=== PATIENT | female | born 1955 | race Caucasian/White ===

== ENCOUNTER 2016-07-31 08:33 | Emergency (ER) | payer MEDICARE, BC ==
[~2016-07-31] VITALS: Ht 157.5 cm; Wt 80.5 kg
[~2016-07-31 08:33] MED LIST: ACET325T33 PO; ALPR0.5T PO; ASPI-727 PO; GABA300C16 PO; IBUP-1542 PO; IBUP800T25 PO; METF500T4 PO; METO25TA4 PO; OMEP20CA16 PO
[2016-07-31 08:44] VITALS: Ht 157.5 cm; Wt 80.5 kg
[2016-07-31] MEDS ORDERED: SOD CHLORIDE 0.9% 1,000 ML IV STA (09:36)
[2016-07-31] MEDS ORDERED: ONDANSETRON 4 MG INJ IV STA (09:36)
[2016-07-31] MEDS ORDERED: morphine 4 MG/ML VIAL IV STA (09:36)
[2016-07-31] MEDS ORDERED: MTF1000T PO (09:56)
[2016-07-31] MEDS ORDERED: DICLOFENAC SODIUM 37.5 MG/ML VIAL IV STA (10:03)
[2016-07-31 10:25] LABS: ADD SCAN DIFF NO
[2016-07-31 10:30] LABS: BASOPHILS % 0.4 % (0.0-2.0); EOSINOPHILS # 0.1 10^3/ul (0.0-0.5); EOSINOPHILS % 1.7 % (0.0-7.0); HEMATOCRIT 39.8 % (37.0-47.0); HEMOGLOBIN 13.2 g/dl (12.0-16.0); LYMPHOCYTES # 1.8 10^3/ul (0.8-2.9); LYMPHOCYTES % 25.9 % (15.0-51.0); MEAN CORPUSCULAR HEMOGLOBIN 29.6 pg (29.0-33.0); MEAN CORPUSCULAR HGB CONC 33.2 g/dl (32.0-37.0); MEAN CORPUSCULAR VOLUME 89.2 fl (82.0-101.0); MEAN PLATELET VOLUME 10.4 fl (7.4-10.4); MONOCYTE # 0.8 10^3/ul (0.3-0.9); MONOCYTES % 11.1 % (0.0-11.0); NEUTROPHIL # 4.2 10^3/ul (1.6-7.5); PLATELET COUNT 299 10^3/UL (140-415); RED BLOOD COUNT 4.46 10^6/ul (4.20-5.40); RED CELL DISTRIBUTION WIDTH 13.6 % (11.5-14.5)
[2016-07-31 10:43] LABS: ALBUMIN 3.9 g/dl (3.3-4.9); ALBUMIN/GLOBULIN RATIO 1.08; BILIRUBIN,INDIRECT 0.2 mg/dl (0-1.1); BILIRUBIN,TOTAL 0.2 mg/dl (0.2-1.3); CALCIUM 8.5 mg/dl (8.4-10.2); CREATININE 0.55 mg/dl (0.44-1.00); POTASSIUM 4.2 mmol/L (3.5-5.1); TOTAL PROTEIN 7.5 g/dl (6.1-8.1)
[2016-07-31] MEDS ORDERED: SOD CHLORIDE 0.9% 100 ML ONE (11:24)
[2016-07-31] MEDS ORDERED: IODIXANOL LOCM 100 ML BTL ONE (11:24)
--- NOTE | 2016-07-31 12:20 | RADRPT ---
PROCEDURE: CT Abdomen and Pelvis with intravenous contrast. CLINICAL INDICATION: Left lower quadrant pain. History of gastritis.. TECHNIQUE: CT scan of the abdomen and pelvis with intravenous contrast was performed on the multi- slice CT scanner. The patient was scanned following the uncomplicated intravenous administration of 99 cc of Visipaque 320 contrast. Coronal and sagittal reformatted images were obtained from the ax ial source images. Images were reviewed on a high-resolution PACS workstation. Total DLP = 1132 mGy-cm. CTDIvol = 20 mGy. One or more of the following dose reduction techniques were used: Automated exposure control. Adjustment of the mA and/or kV according to patient size. Use of iterative reconstruction technique. COMPARISON: None. FINDINGS: CT abdomen and pelvis: The lung bases are clear. The heart size is normal in size. The liver is normal in size and mildly fatty in density without focal mass or intrahepatic biliary dilatation. The spleen is normal in si ze and homogeneous in density. The pancreas as visualized is normal. The gallbladder shows no ev idence of stones or distension . The adrenal glands are normal. The kidneys are symmetric in size. There is a 2 mm nonobstructing stone at the lower pole of the left kidney. No ureteral stones or obstructive uropathy is seen. There are no renal masses identified.. The stomach is partially collapsed, but is grossly unremarkable. The small bowels are unremarkable. The colon and rectum are normal. The appendix is normal.. No evidence of acute appendicitis or diver ticulitis. The uterus has been removed.. The bladder is normal. There is no abdominal or pelvic john nopathy, free fluid, free air, mass or mesenteric inflammation. The aorta is normal in caliber with calcific atherosclerosis. 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 There are no osteolytic or osteoblastic lesions identified.. The soft tissues ar e within normal limits. IMPRESSION: 1. Mild hepatic steatosis. 2. Nonobstructing 2 mm left renal calculus. 3. Bilateral L5 pars defects with mild anterolisthesis. 4. Status post hysterectomy. 5. Otherwise unremarkable contrast enhanced CT abdomen and pelvis without acute pathology identifie d. RPTAT: JJ .Mika Cortes MD, MD Date Time Electronically viewed and signed by .Mika Cortes MD, on 07/31/2016 12:20 .L/
[2016-07-31 12:32] VITALS: BP 141/74; PULSE 71; RESP 18; TEMP 98
[2016-07-31] MEDS ORDERED: METR500T PO (12:49)
[2016-07-31] MEDS ORDERED: CIPR500T4 PO (12:49)
[2016-07-31] MEDS ORDERED: DIPH1TAB PO (12:49)
[2016-07-31] MEDS ORDERED: ONDA4TAB14 PO (12:49)
--- NOTE | 2016-07-31 12:54 | ERD ---
ER Documentation Chief Complaint Date/Time DATE: 07/31/16 TIME: 12:52 Chief Complaint EPIGASTRIC PAIN,VOMITING,DIARRHEA HPI This is a 61-year-old female who developed diarrhea 2 weeks ago after she returned from [facility]. She said the diarrhea started 2 days before her arrival back in [facility]. She says she has had diarrhea every day 2-3 times a day described as watery and brown with some left lower quadrant pain prior to the diarrhea no blood in her stool. She has also had nausea vomiting diarrhea onset yesterday. No fever no chest pain shortness of breath no back pain dysuria hematuria no dizziness or syncope. ROS All systems reviewed and are negative except as per history of present illness. Medications Home Meds Active Scripts Metronidazole* (Flagyl*) 500 Mg Tablet, 500 MG PO TID for 10 Days, TAB Prov:GARRISON MEI DO 07/31/16 Ciprofloxacin Hcl* (Ciprofloxacin Hcl*) 500 Mg Tablet, 500 MG PO BID for 10 Days , TAB Prov:GARRISON MEI DO 07/31/16 Diphenoxylate HCl/Atropine (Lomotil 2.5-0.025 mg Tablet) 1 Each Tablet, 1 TAB PO QID Y for DIARRHEA, #10 TAB Prov:GARRISON MEI DO 07/31/16 Ondansetron (Ondansetron Odt) 4 Mg Tab.rapdis, 4 MG PO Q6H Y for NAUSEA AND/OR VOMITING, #10 TAB Prov:GARRISON MEI DO 07/31/16 Reported Medications Metformin* (Glucophage*) 1,000 Mg Tablet, 1000 MG PO BID, #60 TAB 07/31/16 Metoprolol Tartrate* (Lopressor*) 25 Mg Tablet, 25 MG PO BID, #60 TAB 09/29/15 Omeprazole* (Omeprazole*) 20 Mg Capsule.dr, 20 MG PO BID 07/02/13 Gabapentin* (Gabapentin*) 300 Mg Capsule, 300 MG PO TID 07/02/13 Aspirin (Adult Aspirin) 81 Mg Tab.chew, 81 MG PO DAILY, 0 Refills 07/09/10 Discontinued Reported Medications Metformin* (Glucophage*) 500 Mg Tab, 500 MG PO BID, TAB 07/02/13 Discontinued Scripts Alprazolam* (Xanax*) 0.5 Mg Tab, 0.5 MG PO TID for ANXIETY, #12 TAB Prov:JOSE MOORE MD 09/29/15 Ibuprofen* (Ibuprofen*) 600 Mg Tablet, 600 MG PO TID for PAIN, #30 TAB Prov:JOSE MOORE MD 09/29/15 Acetaminophen* (Tylenol*) 325 Mg Tablet, 2 TAB PO Q6 Y for PAIN AND OR ELEVATED TEMP, #20 TAB Prov:SARA PICHARDO PA-C 05/27/15 Ibuprofen* (Motrin*) 800 Mg Tab, 800 MG PO Q6, #30 TAB Prov:SARA PICHARDO PA-C 05/27/15 Allergies Allergies: Coded Allergies: Penicillins (Verified Allergy, Mild, 07/02/13) PMhx/Soc History of Surgery: Yes (L/R TKR) Anesthesia Reaction: Yes (05/2013 right knee surgery; left knee sx 2008) Hx Neurological Disorder: No Hx Respiratory Disorders: No Hx Cardiac Disorders: Yes (htn) Hx Psychiatric Problems: No Hx Miscellaneous Medical Probl: Yes (gastritis, dm, cholesterol) Hx Alcohol Use: No Hx Substance Use: No Hx Tobacco Use: No Smoking Status: Never smoker FmHx Family History: No coronary disease Physical Exam Vitals Vital Signs Date Time Temp Pulse Resp B/P Pulse Ox O2 Delivery O2 Flow Rate FiO2 07/31/16 12:32 98.0 71 18 141/74 97 Room Air 07/31/16 10:17 98.0 68 18 135/81 98 Room Air 07/31/16 08:44 98.9 75 18 119/60 98 Physical Exam Const: Well-developed, well-nourished Head: Atraumatic, normocephalic Eyes: Normal Conjunctiva, PERRLA, EOMI, normal sclera, no nystagmus ENT: Normal External Ears, Nose and Mouth, moist mucus membranes. Neck: Full range of motion. No meningismus, no lymphadenopathy. Resp: Clear to auscultation bilaterally, no wheezing, rhonchi, rales Cardio: Regular rate and rhythm, no murmurs, S1 S2 present Abd: Soft, some mild left lower quadrant tenderness, non distended. Normal bowel sounds, no guarding or rebound, no pulsitile abdominal masses or bruits Skin: No petechiae or rashes, no ecchymosis , no maculopapular rash Back: No midline or flank tenderness Ext: No cyanosis, or edema, FROM x 4, normal inspection, neurovascularly intact x 4 Neur: Awake and alert, STR 5/5 x 4, sensation intact x 4, no focal findings, cerebellum intact Psych: Normal Mood and Affect Result Diagram: 07/31/16 0955 07/31/16 0955 Results 24 hrs Laboratory Tests Test 07/31/16 09:55 White Blood Count 7.010^3/ul Red Blood Count 4.4610^6/ul Hemoglobin 13.2g/dl Hematocrit 39.8% Mean Corpuscular Volume 89.2fl Mean Corpuscular Hemoglobin 29.6pg Mean Corpuscular Hemoglobin Concent 33.2g/dl Red Cell Distribution Width 13.6% Platelet Count 00817^3/UL Mean Platelet Volume 10.4fl Neutrophils % 60.0% Lymphocytes % 25.9% Monocytes % 11.1% Eosinophils % 1.7% Basophils % 0.4% Nucleated Red Blood Cells % 0.0/100WBC Neutrophils # 4.210^3/ul Lymphocytes # 1.810^3/ul Monocytes # 0.810^3/ul Eosinophils # 0.110^3/ul Basophils # 0.010^3/ul Nucleated Red Blood Cells # 0.010^3/ul Sodium Level 139mmol/L Potassium Level 4.2mmol/L Chloride Level 106mmol/L Carbon Dioxide Level 26mmol/L Anion Gap 11 Blood Urea Nitrogen 13mg/dl Creatinine 0.55mg/dl Glucose Level 112mg/dl Calcium Level 8.5mg/dl Total Bilirubin 0.2mg/dl Direct Bilirubin 0.00mg/dl Indirect Bilirubin 0.2mg/dl Aspartate Amino Transf (AST/SGOT) 49IU/L Alanine Aminotransferase (ALT/SGPT) 66IU/L Alkaline Phosphatase 187IU/L Total Protein 7.5g/dl Albumin 3.9g/dl Globulin 3.60g/dl Albumin/Globulin Ratio 1.08 Lipase 223U/L Current Medications Medications (Trade) Dose Ordered Sig/Ko Route PRN Reason Start Time Stop Time Status Last Admin Dose Admin Sodium Chloride (NS) 1,000 ml @ 1,000 mls/hr Q1H STAT IV 07/31/16 09:36 07/31/16 10:35 DC 07/31/16 10:14 Morphine Sulfate (morphine) 4 mg ONCE STAT IV 07/31/16 09:36 07/31/16 09:37 DC Ondansetron HCl (Zofran Inj) 4 mg ONCE STAT IV 07/31/16 09:36 07/31/16 09:37 DC 07/31/16 10:09 Diclofenac Sodium (Dyloject) 37.5 mg ONCE STAT IV 07/31/16 10:03 07/31/16 10:04 DC 07/31/16 10:14 IV Flush 10 ml 10 ml STK-MED ONCE .ROUTE 07/31/16 11:24 07/31/16 11:25 DC 07/31/16 11:24 Sodium Chloride (NS) 100 ml @ ud STK-MED ONCE .ROUTE 07/31/16 11:24 07/31/16 11:25 DC 07/31/16 11:24 Iodixanol (Visipaque Locm) 100 ml STK-MED ONCE .ROUTE 07/31/16 11:24 07/31/16 11:25 DC 07/31/16 11:24 Procedures/MDM PROCEDURE: CT Abdomen and Pelvis with intravenous contrast. CLINICAL INDICATION: Left lower quadrant pain. History of gastritis.. TECHNIQUE: CT scan of the abdomen and pelvis with intravenous contrast was performed on the multi-slice CT scanner. The patient was scanned following the uncomplicated intravenous administration of 99 cc of Visipaque 320 contrast. Coronal and sagittal reformatted images were obtained from the axial source images. Images were reviewed on a high-resolution PACS workstation. Total DLP = 1132 mGy-cm. CTDIvol = 20 mGy. One or more of the following dose reduction techniques were used: Automated exposure control. Adjustment of the mA and/or kV according to patient size. Use of iterative reconstruction technique. COMPARISON: None. FINDINGS: CT abdomen and pelvis: The lung bases are clear. The heart size is normal in size. The liver is normal in size and mildly fatty in density without focal mass or intrahepatic biliary dilatation. The spleen is normal in size and homogeneous in density. The pancreas as visualized is normal. The gallbladder shows no evidence of stones or distension . The adrenal glands are normal. The kidneys are symmetric in size. There is a 2 mm nonobstructing stone at the lower pole of the left kidney. No ureteral stones or obstructive uropathy is seen. There are no renal masses identified.. The stomach is partially collapsed, but is grossly unremarkable. The small bowels are unremarkable. The colon and rectum are normal. The appendix is normal.. No evidence of acute appendicitis or diverticulitis. The uterus has been removed.. The bladder is normal. There is no abdominal or pelvic adenopathy , free fluid, free air, mass or mesenteric inflammation. The aorta is normal in caliber with calcific atherosclerosis. 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 There are no osteolytic or osteoblastic lesions identified.. The soft tissues are within normal limits. IMPRESSION: 1. Mild hepatic steatosis. 2. Nonobstructing 2 mm left renal calculus. 3. Bilateral L5 pars defects with mild anterolisthesis. 4. Status post hysterectomy. 5. Otherwise unremarkable contrast enhanced CT abdomen and pelvis without acute pathology identified. RPTAT: JJ .Mika Cortes MD, MD Date Time Electronically viewed and signed by .Mika Cortes MD, MD on 07/31/2016 12:20 .L/ CC: GARRISON MEI DO Patient likely has picked up an infection from being in [facility]. Will treat with Cipro and Flagyl. No signs of diverticulitis or perforation. Will treat symptomatic for nausea and vomiting. And diarrhea Departure Diagnosis: Primary Impression: Vomiting and diarrhea Additional Impression: Abdominal pain Abdominal location: left lower quadrant Qualified Code: R10.32 - Left lower quadrant pain Condition: Stable Patient Instructions: Abdominal Pain, Self-Care for Vomiting and Diarrhea GARRISON MEI DO Jul 31, 2016 12:54
== END 2016-07-31 13:00 | disposition home or self-care (01) ==
LOC: E/R 08:33
DX: R11.10 Vomiting, unspecified (principal); R19.7 Diarrhea, unspecified; R10.32 Left lower quadrant pain; I10 Essential (primary) hypertension; E11.9 Type 2 diabetes mellitus without complications; Z79.82 Long term (current) use of aspirin; Z79.84 Long term (current) use of oral hypoglycemic drugs
CPT/HCPCS: 36415; 74177; 80053; 83690; 85025; 96361; 96374; 96375; 99285; J2405; J7030; Q9967; J2270

== ENCOUNTER 2016-12-28 09:54 | Emergency (ER) | payer MEDICARE, BC ==
[~2016-12-28] VITALS: Wt 78.0 kg
[~2016-12-28 09:54] MED LIST changes: -ACET325T33 PO; -ALPR0.5T PO; +CIPR500T4 PO; +DIPH1TAB PO; -IBUP-1542 PO; -IBUP800T25 PO; -METF500T4 PO; +METR500T PO; +MTF1000T PO; +ONDA4TAB14 PO
[2016-12-28] MEDS ORDERED: KETOROLAC 30 MG INJ IM STA (10:47)
[2016-12-28] MEDS ORDERED: traMADol 50 MG TAB PO ONE (11:00)
--- NOTE | 2016-12-28 11:26 | RADRPT ---
PROCEDURE: CT Brain without contrast. CLINICAL INDICATION: Headache, left ear pain. TECHNIQUE: A CT of the brain was performed on multidetector high-resolution CT scanner utilizing a xial sections from the skull base through the vertex without contrast. The scan was reviewed in sof t tissue brain and high frequency resolution bone algorithm windows. Images were reviewed on a high -resolution PACS workstation. One or more the following does reduction techniques were utilized: Aut omated exposure control, adjustment of the mA/ or kV according to patient's size, or use of iterativ e reconstruction technique. The exam CTDI = 42.93 mGy and the DLP = 630.2 mGy-cm. COMPARISON: Brain CT 09/29/2015. FINDINGS: The ventricles and sulci are minimally prominent indicative of volume loss. There is no intracrania l hemorrhage, mass effect or midline shift. No abnormal intra-axial or extra-axial fluid collection s are seen. The greene/white matter differentiation is preserved. There are minimal scattered foci of hypoattenuation in the white matter, which are nonspecific in et iology but likely reflect chronic small vessel ischemic changes. There are minimal intracranial vas cular calcifications consistent with atherosclerosis. The visualized paranasal sinuses are essential ly clear. Prior left suboccipital craniectomy/cranioplasty changes are again noted with associated subjacent h ypodensity within the lateral aspect of the left cerebellar hemisphere suggestive of encephalomalaci a. IMPRESSION: 1. No acute intracranial hemorrhage, transcortical infarction or mass effect. 2. Minimal intracranial atherosclerosis and chronic small vessel ischemic changes. 3. Minimal generalized cerebral volume loss. 4. 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 RPTAT: JJ .Shauna Aquino MD, MD Date Time Electronically viewed and signed by .Shauna Aquino MD, MD on 12/28/2016 11:26 .N/
--- NOTE | 2016-12-28 11:49 | RADRPT ---
PROCEDURE: CT scan facial bones CLINICAL INDICATION: Left sided pain. TECHNIQUE: CT scan of the face was performed on the a high-resolution multidetector CT scanner wit h multiple contiguous axial images obtained through the face. Coronal and sagittal reformatted imag es were obtained from the axial source images. One or more the following does reduction techniques w ere utilized: Automated exposure control, adjustment of the mA/ or kV according to patient's size, o r use of iterative reconstruction technique. Exam CTDI = 29.4 mGy and the DLP = 502.52 mGy-cm. COMPARISON: None available. FINDINGS: No acute fracture or dislocation is seen. No significant soft tissue swelling is noted. The orbita l globes are unremarkable. Rightward nasal septal deviation is noted. Paranasal sinuses demonstrate mild scattered mucosal thickening mainly in ethmoid air cells and maxillary sinuses. Mild right and moderate left degenerative changes of temporomandibular joints are noted. Prior left suboccipital craniectomy/cranioplasty changes are again noted with associated subjacent h ypodensity within the lateral aspect of the left cerebellar hemisphere suggestive of encephalomalaci a. IMPRESSION: 1. No acute facial fracture or dislocation. 2. Mild scattered paranasal sinus disease. 3. Mild to moderate degenerative changes of the temporal mandibular joints. 4. 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 RPTAT: JJ .Shauna Aquino MD, MD Date Time Electronically viewed and signed by .Shauna Aquino MD, MD on 12/28/2016 11:49 .N/
[2016-12-28] MEDS ORDERED: TRAM-40 PO (12:29)
--- NOTE | 2016-12-28 12:33 | ERD ---
ER Documentation Chief Complaint Date/Time DATE: 12/28/16 TIME: 12:31 Chief Complaint LEFT EAR TO JAW PAIN HPI 61-year-old female presents with pain in her left jaw. Patient has a history of unspecified chronic pain of the left jaw and had craniotomy and surgery for this pain she states. She is unable to give specific details of what type of surgery are low as the cause of the problem. She has been and worsening symptoms similar pain radiating to her left jaw for the last month. She takes NSAIDs as well as Neurontin without relief. She denies fevers, difficulty swallowing, difficulty breathing, chest pain, shortness of breath. ROS All systems reviewed and are negative except as per history of present illness. Medications Home Meds Active Scripts Tramadol Hcl* (Ultram*) 50 Mg Tablet, 50 MG PO Q6H Y for PAIN, #20 TAB Prov:PARMINDER GOODMAN MD 12/28/16 Metronidazole* (Flagyl*) 500 Mg Tablet, 500 MG PO TID for 10 Days, TAB Prov:GARRISON MEI DO 07/31/16 Ciprofloxacin Hcl* (Ciprofloxacin Hcl*) 500 Mg Tablet, 500 MG PO BID for 10 Days , TAB Prov:GARRISON MEI DO 07/31/16 Diphenoxylate HCl/Atropine (Lomotil 2.5-0.025 mg Tablet) 1 Each Tablet, 1 TAB PO QID Y for DIARRHEA, #10 TAB Prov:GARRISON MEI DO 07/31/16 Ondansetron (Ondansetron Odt) 4 Mg Tab.rapdis, 4 MG PO Q6H Y for NAUSEA AND/OR VOMITING, #10 TAB Prov:GARRISON MEI DO 07/31/16 Reported Medications Metformin* (Glucophage*) 1,000 Mg Tablet, 1000 MG PO BID, #60 TAB 07/31/16 Metoprolol Tartrate* (Lopressor*) 25 Mg Tablet, 25 MG PO BID, #60 TAB 09/29/15 Omeprazole* (Omeprazole*) 20 Mg Capsule.dr, 20 MG PO BID 07/02/13 Gabapentin* (Gabapentin*) 300 Mg Capsule, 300 MG PO TID 07/02/13 Aspirin (Adult Aspirin) 81 Mg Tab.chew, 81 MG PO DAILY, 0 Refills 07/09/10 Allergies Allergies: Coded Allergies: Penicillins (Verified Allergy, Mild, 12/28/16) PMhx/Soc History of Surgery: Yes (L/R TKR) Anesthesia Reaction: Yes (05/2013 right knee surgery; left knee sx 2008) Hx Neurological Disorder: No Hx Respiratory Disorders: No Hx Cardiac Disorders: Yes (htn) Hx Psychiatric Problems: No Hx Miscellaneous Medical Probl: Yes (gastritis, dm, cholesterol) Hx Alcohol Use: No Hx Substance Use: No Hx Tobacco Use: No Smoking Status: Never smoker Physical Exam Vitals Vital Signs Date Time Temp Pulse Resp B/P Pulse Ox O2 Delivery O2 Flow Rate FiO2 12/28/16 09:57 98.0 78 18 139/71 99 Physical Exam Const: []Alert, not appearing Head: Atraumatic Eyes: Normal Conjunctiva ENT: Normal External Ears, Nose and Mouth.Tenderness primarily along the left angle of the mandible and jaw. There is tenderness in the left TMJ preauricular area as well. There is no erythema, warmth, and airways patent and there is no deformities. Neck: Full range of motion..~ No meningismus. Resp: Clear to auscultation bilaterally Cardio: Regular rate and rhythm, no murmurs Abd: Soft, non tender, non distended. Normal bowel sounds Skin: No petechiae or rashes Back: No midline or flank tenderness Ext: No cyanosis, or edema Neur: Awake and alert Psych: Normal Mood and Affect Results 24 hrs Current Medications Medications (Trade) Dose Ordered Sig/Ko Route PRN Reason Start Time Stop Time Status Last Admin Dose Admin Ketorolac Tromethamine (Toradol) 30 mg ONCE STAT IM 12/28/16 10:47 12/28/16 10:49 DC 12/28/16 10:55 Tramadol HCl (Ultram) 50 mg ONCE ONCE PO 12/28/16 11:00 12/28/16 11:01 DC 12/28/16 10:55 Procedures/MDM Given the uncertain cause of pain and history of CT brain and facial bones performed shows previous craniotomy without acute findings. There is degenerative changes of the TMJ joint. Patient presents with left jaw pain of uncertain etiology with a history of on certain craniotomy for similar symptoms. There is no evidence of mass-effect, bleeding, fracture, airway compromise, sepsis. She will treated with tramadol and primary care in ENT follow-up and return precautions. The patient was stable with no new complaints during the ER course. Clinically, there is no current evidence to suggest meningitis, sepsis, acute abdomen, pneumonia, acute coronary syndrome, pulmonary embolism, or any other emergent condition appearing to require further evaluation or hospitalization. The patient should certainly return for any new or worsening symptoms per the aftercare instructions. They should otherwise follow-up with her primary care doctor for reevaluation this week. Departure Diagnosis: Primary Impression: Jaw pain Condition: Stable Patient Instructions: Pain, Uncertain Cause (Acute) Additional Instructions: no hay cosa nueva en ct scan. Examines normal hoy. Cheque otro vez con pompa doctor primario en el proximo [place] or regresa para mas o nueva simptomas. PARMINDER GOODMAN MD Dec 28, 2016 12:33
== END 2016-12-28 12:58 | disposition home or self-care (01) ==
LOC: FTE 09:54
DX: R68.84 Jaw pain (principal); I10 Essential (primary) hypertension; E11.9 Type 2 diabetes mellitus without complications; R51 Headache; Z96.653 Presence of artificial knee joint, bilateral; Z79.84 Long term (current) use of oral hypoglycemic drugs; Z79.82 Long term (current) use of aspirin
CPT/HCPCS: 70450; 70486; 96372; 99285; J1885

== ENCOUNTER 2017-01-06 10:46 | Observation (INO) | payer MEDICARE, BC ==
[~2017-01-06] VITALS: Ht 152.4 cm; Wt 79.5 kg
[~2017-01-06 10:46] MED LIST changes: +TRAM-40 PO
[2017-01-06] MEDS ORDERED: ASPIRIN 81 MG TAB PO STA (11:17)
[2017-01-06] MEDS ORDERED: NITROGLYCERIN 2% 1 GM OINT PKT TD STA (11:17)
--- NOTE | 2017-01-06 11:46 | RADRPT ---
PROCEDURE: XR Chest. CLINICAL INDICATION: Chest pain. TECHNIQUE: Single frontal view. COMPARISON: 04/10/2011. FINDINGS: The lungs are clear. The heart size is normal. There is no pleural effusion. There is no pneumothorax. IMPRESSION: 1. Normal chest radiograph. 2. No change from 04/10/2011. RPTAT: QQ .Ronni Ramirez MD, MD Date Time Electronically viewed and signed by .Ronni Ramirez MD, MD on 01/06/2017 11:45 .R/
[2017-01-06] MEDS: NITROGLYCERIN (SL) 0.4 MG TAB SL PRN ×2 (11:57→14:27)
[2017-01-06 11:58] LABS: BASOPHIL # 0.1 10^3/ul (0.0-0.1); BASOPHILS % 0.7 % (0.0-2.0); EOSINOPHILS # 0.1 10^3/ul (0.0-0.5); EOSINOPHILS % 1.3 % (0.0-7.0); HEMATOCRIT 40.1 % (37.0-47.0); HEMOGLOBIN 13.2 g/dl (12.0-16.0); LYMPHOCYTES % 27.4 % (15.0-51.0); MEAN CORPUSCULAR HEMOGLOBIN 28.9 pg (29.0-33.0); MEAN CORPUSCULAR HGB CONC 32.9 g/dl (32.0-37.0); MEAN CORPUSCULAR VOLUME 87.9 fl (82.0-101.0); MONOCYTE # 0.6 10^3/ul (0.3-0.9); MONOCYTES % 8.3 % (0.0-11.0); NEUTROPHIL # 4.6 10^3/ul (1.6-7.5); NEUTROPHILS % 61.9 % (39.0-77.0); PLATELET COUNT 339 10^3/UL (140-415); RED BLOOD COUNT 4.56 10^6/ul (4.20-5.40); RED CELL DISTRIBUTION WIDTH 13.2 % (11.5-14.5); WHITE BLOOD COUNT 7.4 10^3/ul (4.8-10.8)
[2017-01-06 12:16] LABS: ANION GAP 14 (8-16); BLOOD UREA NITROGEN 14 mg/dl (7-20); CARBON DIOXIDE 26 mmol/L (21-31); CHLORIDE 108 mmol/L (97-110); CREATININE 0.76 mg/dl (0.44-1.00); GLUCOSE 141 mg/dl (70-220); POTASSIUM 4.3 mmol/L (3.5-5.1); SODIUM 144 mmol/L (135-144)
[2017-01-06 12:30] LABS: TROPONIN-I < 0.012 ng/ml (0.00-0.12)
[2017-01-06] MEDS ORDERED: DONE5TAB32 PO (12:42)
[2017-01-06] MEDS ORDERED: ONDANSETRON 4 MG INJ IV PRN ×2 (13:00→14:30)
[2017-01-06] MEDS ORDERED: ACETAMINOPHEN 325 MG TAB PO PRN ×2 (13:00→14:30)
--- NOTE | 2017-01-06 13:34 | ERA ---
ER Documentation Chief Complaint Date/Time DATE: 01/06/17 TIME: 13:32 Chief Complaint chest pain x 3 days; generalized body pain HPI Patient is a 61-year-old female with hypertension and diabetes who presents with chest pain. The patient has midsternal chest pain which started on Saturday. The pain is been constant. The patient has had no treatment as of yet. Chest pain radiates into the left jaw. The patient cannot remember the name of her primary doctor. ROS All systems reviewed and are negative except as per history of present illness. Medications Home Meds Active Scripts Tramadol Hcl* (Ultram*) 50 Mg Tablet, 50 MG PO Q6H Y for PAIN, #20 TAB Prov:PARMINDER GOODMAN MD 12/28/16 Reported Medications Donepezil* (Aricept*) 5 Mg Tablet, 5 MG PO DAILY, TAB 01/06/17 Metformin* (Glucophage*) 1,000 Mg Tablet, 1000 MG PO BID, #60 TAB 07/31/16 Metoprolol Tartrate* (Lopressor*) 25 Mg Tablet, 25 MG PO BID, #60 TAB 09/29/15 Omeprazole* (Omeprazole*) 20 Mg Capsule.dr, 20 MG PO BID 07/02/13 Gabapentin* (Gabapentin*) 300 Mg Capsule, 300 MG PO TID 07/02/13 Aspirin (Adult Aspirin) 81 Mg Tab.chew, 81 MG PO DAILY, 0 Refills 07/09/10 Discontinued Scripts Metronidazole* (Flagyl*) 500 Mg Tablet, 500 MG PO TID for 10 Days, TAB Prov:GARRISON MEI DO 07/31/16 Ciprofloxacin Hcl* (Ciprofloxacin Hcl*) 500 Mg Tablet, 500 MG PO BID for 10 Days , TAB Prov:BRANDEE MEISTSARAHS AConsueol DO 07/31/16 Diphenoxylate HCl/Atropine (Lomotil 2.5-0.025 mg Tablet) 1 Each Tablet, 1 TAB PO QID Y for DIARRHEA, #10 TAB Prov:GARRISON MEI DO 07/31/16 Ondansetron (Ondansetron Odt) 4 Mg Tab.rapdis, 4 MG PO Q6H Y for NAUSEA AND/OR VOMITING, #10 TAB Prov:GARRISON MEI DO 07/31/16 Allergies Allergies: Coded Allergies: Penicillins (Verified Allergy, Mild, 01/06/17) PMhx/Soc History of Surgery: Yes (L/R TKR) Anesthesia Reaction: Yes (05/2013 right knee surgery; left knee sx 2008) Hx Neurological Disorder: No Hx Respiratory Disorders: No Hx Cardiac Disorders: Yes (htn) Hx Psychiatric Problems: No Hx Miscellaneous Medical Probl: Yes (gastritis, dm, cholesterol) Hx Alcohol Use: No Hx Substance Use: No Hx Tobacco Use: No Smoking Status: Never smoker FmHx Family History: No coronary disease Physical Exam Vitals Vital Signs Date Time Temp Pulse Resp B/P Pulse Ox O2 Delivery O2 Flow Rate FiO2 01/06/17 12:21 Nasal Cannula 01/06/17 10:49 88 19 148/80 98 Physical Exam Const: No acute distress Head: Atraumatic Eyes: Normal Conjunctiva ENT: Normal External Ears, Nose and Mouth. Neck: Full range of motion..~ No meningismus. Resp: Clear to auscultation bilaterally Cardio: Regular rate and rhythm, no murmurs Abd: Soft, non tender, non distended. Normal bowel sounds Skin: No petechiae or rashes Back: No midline or flank tenderness Ext: No cyanosis, or edema Neur: Awake and alert Psych: Normal Mood and Affect Result Diagram: 01/06/17 1155 01/06/17 1155 Results 24 hrs Laboratory Tests Test 01/06/17 11:55 White Blood Count 7.410^3/ul Red Blood Count 4.5610^6/ul Hemoglobin 13.2g/dl Hematocrit 40.1% Mean Corpuscular Volume 87.9fl Mean Corpuscular Hemoglobin 28.9pg Mean Corpuscular Hemoglobin Concent 32.9g/dl Red Cell Distribution Width 13.2% Platelet Count 06328^3/UL Mean Platelet Volume 10.0fl Neutrophils % 61.9% Lymphocytes % 27.4% Monocytes % 8.3% Eosinophils % 1.3% Basophils % 0.7% Nucleated Red Blood Cells % 0.0/100WBC Neutrophils # 4.610^3/ul Lymphocytes # 2.010^3/ul Monocytes # 0.610^3/ul Eosinophils # 0.110^3/ul Basophils # 0.110^3/ul Nucleated Red Blood Cells # 0.010^3/ul Sodium Level 144mmol/L Potassium Level 4.3mmol/L Chloride Level 108mmol/L Carbon Dioxide Level 26mmol/L Anion Gap 14 Blood Urea Nitrogen 14mg/dl Creatinine 0.76mg/dl Glucose Level 141mg/dl Calcium Level 9.0mg/dl Troponin I < 0.012ng/ml Current Medications Medications (Trade) Dose Ordered Sig/Ko Route PRN Reason Start Time Stop Time Status Last Admin Dose Admin Aspirin (Aspirin) 162 mg ONCE STAT PO 01/06/17 11:17 01/06/17 11:19 DC 01/06/17 11:56 Nitroglycerin (Nitroglycerin 2% Oint) 1 inch ONCE STAT TD 01/06/17 11:17 01/06/17 11:19 DC 01/06/17 11:55 Nitroglycerin (Nitroglycerin (Sl Tab) 0.4 Mg) 1 tab Q5M UP TO 3 DOSES PRN SL CHEST PAIN 01/06/17 11:30 01/06/17 11:57 Ondansetron HCl (Zofran Inj) 4 mg ER BRIDGE PRN IV NAUSEA AND/OR VOMITING 01/06/17 13:00 01/07/17 12:59 Acetaminophen (Tylenol Tab) 650 mg ER BRIDGE PRN PO MILD PAIN/FEVER 01/06/17 13:00 01/07/17 12:59 Procedures/MDM EKG #1 read by me: Rate/Rhythm: Regular rate and rhythm at a rate of 83 Intervals: Normal Impression: No evidence of ischemia or arrhythmia EKG #2 read by me: Rate/Rhythm: First-degree AV block at a rate of 67 Intervals: Prolonged CT interval Impression: First-degree AV block Chest x-ray shows no pneumonia or pneumothorax per radiology. Patient is a 61-year-old female with hypertension, diabetes who presents with chest pain. The patient had 2 EKGs which the second showed a first-degree AV block. Chest x-ray shows no pneumonia or pneumothorax. Initial troponin is negative. The patient will be admitted to the panel team for possible acute coronary syndrome. I doubt pneumonia, pneumothorax, pulmonary embolism, or aortic dissection. Departure Diagnosis: Primary Impression: Chest pain Qualified Code: R07.9 - Chest pain, unspecified type Condition: ARMOND Major MD Jan 06, 2017 13:34
[2017-01-06 14:29] VITALS: PULSE 70
[2017-01-06] MEDS ORDERED: NACL 0.9% 3 ML SYG IV SCH (14:30)
--- NOTE | 2017-01-06 14:58 | HP ---
Date/Time of Note Date/Time of Note DATE: 01/06/17 TIME: 14:36 Assessment/Plan VTE Prophylaxis VTE Prophylaxis Intervention: LMWH Lines/Catheters IV Catheter Type (from Nrsg): Saline Lock Assessment/Plan Assessment/Plan 1. Chest pain rule out ACS - Does not sound cardiac in nature but given patient history of DM will pursue workup - Troponin negative x1, will trend - ECHO ordered - EKG showed 1st degree AV block - Cardiology consult placed - Nitro and morphine PRN - Lipid panel and TSH ordered as well 2. Diabetes Mellitus - Patient states sugars controlled on PO meds - will hold metformin and place on ISS - will check A1c 3. Trigeminal Neuralgia - Will try on Baclofen - If no relief will titrate up on Gabapentin or try Tegretol - Will consider Neurology if relief not found given preventing patient from being able to eat/talk - h/o surgery in 2010 to help with trigeminal neuralgia. Has neurologist she follows as outpatient but forgets name 4. Sciatica 2/2 osteoarthritis of lumbar spine - Patient c/o LLE neuropathy. Told in past she has OA of lumbar spine but refusing surgery - Will order Baclofen 10 mg TID 5. RUQ pain - will order RUQ US and LFT as well as Lipase - if acute cholecystitis present will consult surgery 6. Diet - Heart healthy 7. Code - Full 8. DVT prophylaxis - LMWH 9. GI - pepcid 10. Disposition - Admit to telemetry for cardiac workup >40 minutes was spent with patient at time of admission. All labs and imaging was personally reviewed by myself. HPI/ROS Admit Date/Time Admit Date/Time Jan 06, 2017 at 12:58 Hx of Present Illness 61 yo F with PMH DM and HTN presents to the ED with multiple complaints. Patient states for the past 3 days she has been experiencing moderate right sided chest pain, intermittent in nature, squeezing/pressure like, nonradiating. She has associated nausea without vomiting and shortness of breath. She also is complaining of left sided jaw pain and has history of trigeminal neuralgia which she was operated on in 2010. She states the pain resolved after the surgery but over the last 40 days has returned, electrical in nature and preventing her from eating and opening her mouth. Patient does follow with an outside Neurologist who has tried her on Gabapentin, Diclofenac, and Tramadol with no relief. She also admits to RUQ pain with eating that is associated with nausea and diarrhea. Admits to headache, facial pressure, dizziness but denies any fevers, chills, palpitations, urinary issues. ROS All 13 systems reviewed and pertinent positives per HPI. All others reviewed and negative. Constitutional: nausea, poor po Eyes: visual change ENT: other (pain left side of face with opening mouth and talking) Respiratory: shortness of breath, No cough, No sputum, No wheezing Cardiovascular: chest pain, No edema, No palpitations Gastrointestinal: diarrhea, nausea, pain, No constipation, No vomiting Genitourinary: no complaints Musculoskeletal: back pain, bone/joint pain Skin: no complaints Neurologic: headache Endocrine: no complaints Lymphatic: no complaints Psychological: no complaints Immunologic: no complaints PMH/Family/Social Past Medical History Medical History: diabetes, hypertension Past Surgical History Past Surgical Hx: other (Left knee surgery x1, Right knee surgeryx3, surgery on left facial nerve) Family History Significant Family History: no pertinent family hx Social History Alcohol Use: none Smoking Status: Never smoker Drug Use: none Exam/Review of Systems Vital Signs Vitals Vital Signs Date Time Temp Pulse Resp B/P Pulse Ox O2 Delivery O2 Flow Rate FiO2 01/06/17 13:54 63 15 115/90 100 Room Air Exam Constitutional: alert, distress, oriented, well developed Psych: nl mood/affect Head: atraumatic, normocephalic Eyes: EOMI, PERRL, nl sclera ENMT: mucosa pink and moist Neck: non-tender, supple Respiratory: clear to auscultation, No crackles/rales, No diminished breath sounds, No labored breathing, No wheezing Cardiovascular: regular rate and rhythm, No edema, No murmurs/extra sounds, No systolic murmur Gastrointestinal: bowel sounds, soft, tender (RUQ, +hill), No distended, No mass, No rebound or guarding Genitourinary - Male: No CVA tenderness Musculoskeletal: muscle weakness, nl extremities to inspection Extremities: normal pulses, No clubbing, No cyanosis, No edema Neurological: INFORMATION SYSTEMS OPERATOR II-XII intact, nl mental status, nl speech, nl strength Skin: nl turgor, rash or lesions Lymph: nl lymph nodes Labs Result Diagram: 01/06/17 1155 01/06/17 1155 Procedures Procedures PROCEDURE: XR Chest. CLINICAL INDICATION: Chest pain. TECHNIQUE: Single frontal view. COMPARISON: 04/10/2011. FINDINGS: The lungs are clear. The heart size is normal. There is no pleural effusion. There is no pneumothorax. IMPRESSION: 1. Normal chest radiograph. NIK NELSON MD Jan 06, 2017 14:48
[2017-01-06] MEDS ORDERED: GLUCOSE GEL 15 GRAM TUBE BUCCAL PRN (15:00)
[2017-01-06] MEDS ORDERED: DEXTROSE 50% 50 ML SYRINGE IV PRN ×2 (15:00)
[2017-01-06] MEDS ORDERED: GLUCAGON 1 MG INJ IM PRN (15:00)
[2017-01-06] MEDS ORDERED: morphine 2 MG INJ IV PRN ×2 (15:00→21:00)
[2017-01-06] MEDS ORDERED: GLUCOSE GEL 15 GRAM TUBE PO PRN ×2 (15:00)
[2017-01-06 15:25] LABS: CREATINE KINASE 80 IU/L (23-200)
[2017-01-06 15:26] LABS: ALBUMIN 3.7 g/dl (3.3-4.9); BILIRUBIN,INDIRECT 0.2 mg/dl (0-1.1); BILIRUBIN,TOTAL 0.2 mg/dl (0.2-1.3); TOTAL PROTEIN 7.3 g/dl (6.1-8.1)
[2017-01-06 15:38] LABS: CK-MB 0.53 ng/ml (0.0-2.4)
[2017-01-06 15:39] LABS: TROPONIN-I < 0.012 ng/ml (0.00-0.12)
--- NOTE | 2017-01-06 15:56 | RADRPT ---
PROCEDURE: Right upper quadrant abdominal ultrasound. CLINICAL INDICATION: Abdominal pain TECHNIQUE: Stark scale and color doppler ultrasound images of the right upper quadrant of the abdom en. COMPARISON: CT abdomen pelvis 07/31/2016 FINDINGS: Pancreas: Visualized portions appear of normal echogenicity without focal lesions. Liver: Morphology:Normal in size. Contour:Normal, no evidence of nodularity. Echogenicity: Increased Focal lesions:None. Main portal vein: Patent with hepatopetal flow. Biliary System: Gallbladder wall: Normal thickness. Gallstones: None. Intrahepatic bile ducts: Normal caliber. Common bile duct diameter (mm): 3.3 Kidneys: Right length (cm) : 9.8 Right cortical thickness: Normal. Echogenicity: Normal. Hydronephrosis: None. Renal calculi: None. Focal lesions: None. Free fluid/ascites: None. Abdominal aorta: Not visualized by the clip baker. Other findings: None. IMPRESSION: Normal gallbladder without gallstones. Increased echogenicity of the liver parenchyma suggestive of hepatic steatosis. RPTAT: AADD .Erik Ruano MD, MD Date Time Electronically viewed and signed by .Erik Ruano MD, on 01/06/2017 15:56 .B/
[2017-01-06 16:00] VITALS: PULSE 71
[2017-01-06] MEDS: BACLOFEN 10 MG TAB PO SCH ×2 (16:54→22:05)
[2017-01-06] MEDS: GABAPENTIN 300 MG CAP PO SCH ×2 (16:54→22:05)
[2017-01-06] MEDS: INSULIN ASPART [NOVOLOG] 3 ML PEN SC SCH ×2 (16:57→21:00)
[2017-01-06 17:45] LABS: CREATINE KINASE 81 IU/L (23-200)
[2017-01-06] MEDS: PANTOPRAZOLE SODIUM 20 MG TABEC PO SCH (17:51)
[2017-01-06 17:57] LABS: CK-MB 0.57 ng/ml (0.0-2.4)
[2017-01-06] MEDS ORDERED: PANTOPRAZOLE (EC) 40 MG TAB PO SCH (18:00)
[2017-01-06 18:04] LABS: TROPONIN-I < 0.012 ng/ml (0.00-0.12)
[2017-01-06 18:13] VITALS: Ht 152.4 cm; Wt 79.5 kg
[2017-01-06 19:34] VITALS: BP 133/71; RESP 20
[2017-01-06 20:21] VITALS: PULSE 64
--- NOTE | 2017-01-06 20:37 | CONS ---
Date/Time of Note Date/Time of Note DATE: 01/06/17 TIME: 19:54 Consultation Date/Type/Reason Admit Date/Time Jan 06, 2017 at 12:58 Date/Time of Note Date/Time of Note DATE: 01/06/17 TIME: 19:36 Assessment/Plan VTE Prophylaxis VTE Prophylaxis Intervention: LMWH Lines/Catheters IV Catheter Type (from Nrsg): Saline Lock Assessment/Plan Assessment/Plan 1. Chest pain rule out ACS - Does not sound cardiac in nature but given patient history of DM will pursue workup - Troponin negative x1, will trend - ECHO ordered - EKG showed 1st degree AV block - Cardiology consult placed - Nitro and morphine PRN - Lipid panel and TSH ordered as well 2. Diabetes Mellitus - Patient states sugars controlled on PO meds - will hold metformin and place on ISS - will check A1c 3. Trigeminal Neuralgia - Will try on Baclofen - If no relief will titrate up on Gabapentin or try Tegretol - Will consider Neurology if relief not found given preventing patient from being able to eat/talk - h/o surgery in 2010 to help with trigeminal neuralgia. Has neurologist she follows as outpatient but forgets name 4. Sciatica 2/2 osteoarthritis of lumbar spine - Patient c/o LLE neuropathy. Told in past she has OA of lumbar spine but refusing surgery - Will order Baclofen 10 mg TID 5. RUQ pain - will order RUQ US and LFT as well as Lipase - if acute cholecystitis present will consult surgery 6. Diet - Heart healthy 7. Code - Full 8. DVT prophylaxis - LMWH 9. GI - pepcid 10. Disposition - Admit to telemetry for cardiac workup >40 minutes was spent with patient at time of admission. All labs and imaging was personally reviewed by myself. HPI/ROS Admit Date/Time Admit Date/Time Jan 06, 2017 at 12:58 Hx of Present Illness 61 yo F with PMH DM and HTN presents to the ED with multiple complaints. Patient states for the past 3 days she has been experiencing moderate right sided chest pain, intermittent in nature, squeezing/pressure like, nonradiating. She has associated nausea without vomiting and shortness of breath. She also is complaining of left sided jaw pain and has history of trigeminal neuralgia which she was operated on in 2010. She states the pain resolved after the surgery but over the last 40 days has returned, electrical in nature and preventing her from eating and opening her mouth. Patient does follow with an outside Neurologist who has tried her on Gabapentin, Diclofenac, and Tramadol with no relief. She also admits to RUQ pain with eating that is associated with nausea and diarrhea. Admits to headache, facial pressure, dizziness but denies any fevers, chills, palpitations, urinary issues. ROS All 13 systems reviewed and pertinent positives per HPI. All others reviewed and negative. Constitutional: nausea, poor po Eyes: visual change ENT: other (pain left side of face with opening mouth and talking) Respiratory: shortness of breath, No cough, No sputum, No wheezing Cardiovascular: chest pain, No edema, No palpitations Gastrointestinal: diarrhea, nausea, pain, No constipation, No vomiting Genitourinary: no complaints Musculoskeletal: back pain, bone/joint pain Skin: no complaints Neurologic: headache Endocrine: no complaints Lymphatic: no complaints Psychological: no complaints Immunologic: no complaints PMH/Family/Social Past Medical History Medical History: diabetes, hypertension Past Surgical History Past Surgical Hx: other (Left knee surgery x1, Right knee surgeryx3, surgery on left facial nerve) Family History Significant Family History: no pertinent family hx Social History Alcohol Use: none Smoking Status: Never smoker Drug Use: none Exam/Review of Systems Vital Signs Vitals Vital Signs Date Time Temp Pulse Resp B/P Pulse Ox O2 Delivery O2 Flow Rate FiO2 01/06/17 13:54 63 15 115/90 100 Room Air Exam Constitutional: alert, distress, oriented, well developed Psych: nl mood/affect Head: atraumatic, normocephalic Eyes: EOMI, PERRL, nl sclera ENMT: mucosa pink and moist Neck: non-tender, supple Respiratory: clear to auscultation, No crackles/rales, No diminished breath sounds, No labored breathing, No wheezing Cardiovascular: regular rate and rhythm, No edema, No murmurs/extra sounds, No systolic murmur Gastrointestinal: bowel sounds, soft, tender (RUQ, +hill), No distended, No mass, No rebound or guarding Genitourinary - Male: No CVA tenderness Musculoskeletal: muscle weakness, nl extremities to inspection Extremities: normal pulses, No clubbing, No cyanosis, No edema Neurological: MATERIAL CLERK II-XII intact, nl mental status, nl speech, nl strength Skin: nl turgor, rash or lesions Lymph: nl lymph nodes Labs Result Diagram: 01/06/17 1155 01/06/17 1155 Procedures Procedures PROCEDURE: XR Chest. CLINICAL INDICATION: Chest pain. TECHNIQUE: Single frontal view. COMPARISON: 04/10/2011. FINDINGS: The lungs are clear. The heart size is normal. There is no pleural effusion. There is no pneumothorax. IMPRESSION: 1. Suspicion of "possible" ACS 2, Several risk factors positive for CAD PLAN: 1. Rule out ACS by symptoms, EKG, biomarkers. 2. Echocardiogram, nuclear stress test, if asymptomatic in hospital. Will Follow. DIEGO BLACKBURN MD Eyes: visual change ENT: other (pain left side of face with opening mouth and talking) Respiratory: shortness of breath, No cough, No sputum, No wheezing Cardiovascular: chest pain, No edema, No palpitations Gastrointestinal: diarrhea, nausea, pain, No constipation, No vomiting Genitourinary: no complaints Musculoskeletal: back pain, bone/joint pain Skin: no complaints Neurologic: headache Lymphatic: no complaints Psychological: nl mood/affect Immunologic: no complaints Past Medical History Medical History: diabetes, hypertension Past Surgical History Past Surgical Hx: other (Left knee surgery x1, Right knee surgeryx3, surgery on left facial nerve) Social History Alcohol Use: none Smoking Status: Never smoker Drug Use: none Exam/Review of Systems Vital Signs Vitals Vital Signs Date Time Temp Pulse Resp B/P Pulse Ox O2 Delivery O2 Flow Rate FiO2 01/06/17 19:34 98.3 67 20 133/71 95 01/06/17 13:54 Room Air Results Result Diagram: 01/06/17 1155 01/06/17 1155 Results 24 hrs Laboratory Tests Test 01/06/17 11:55 01/06/17 14:46 01/06/17 16:53 01/06/17 17:16 White Blood Count 7.4 Red Blood Count 4.56 Hemoglobin 13.2 Hematocrit 40.1 Mean Corpuscular Volume 87.9 Mean Corpuscular Hemoglobin 28.9 L Mean Corpuscular Hemoglobin Concent 32.9 Red Cell Distribution Width 13.2 Platelet Count 339 Mean Platelet Volume 10.0 Neutrophils % 61.9 Lymphocytes % 27.4 Monocytes % 8.3 Eosinophils % 1.3 Basophils % 0.7 Nucleated Red Blood Cells % 0.0 Neutrophils # 4.6 Lymphocytes # 2.0 Monocytes # 0.6 Eosinophils # 0.1 Basophils # 0.1 Nucleated Red Blood Cells # 0.0 Sodium Level 144 Potassium Level 4.3 Chloride Level 108 Carbon Dioxide Level 26 Anion Gap 14 Blood Urea Nitrogen 14 Creatinine 0.76 Glucose Level 141 Calcium Level 9.0 Troponin I < 0.012 < 0.012 < 0.012 Total Bilirubin 0.2 Direct Bilirubin 0.00 Indirect Bilirubin 0.2 Aspartate Amino Transf (AST/SGOT) 44 Alanine Aminotransferase (ALT/SGPT) 75 H Alkaline Phosphatase 183 H Creatine Kinase 80 81 Creatine Kinase Index 0.7 0.7 Creatinine Kinase MB (Mass) 0.53 0.57 Total Protein 7.3 Albumin 3.7 Lipase 172 Bedside Glucose 104 Medications Medications Current Medications Aspirin (Aspirin) 81 mg DAILY PO ; Start 01/07/17 at 09:00 Donepezil HCl (Aricept) 5 mg DAILY PO ; Start 01/07/17 at 09:00 Gabapentin (Neurontin) 300 mg TID PO Last administered on 01/06/17 16:54; Admin Dose 300 MG; Start 01/06/17 at 15:00 Metoprolol Tartrate (Lopressor) 25 mg BID PO ; Start 01/06/17 at 21:00 Ondansetron HCl (Zofran Inj) 4 mg Q6H PRN IV NAUSEA AND/OR VOMITING; Start at 14:30 Acetaminophen (Tylenol Tab) 650 mg Q6H PRN PO PAIN LEVEL 1-3 OR FEVER; Start at 14:30 Famotidine (Pepcid) 20 mg Q12 PO ; Start 01/06/17 at 21:00 Enoxaparin Sodium (Lovenox) 40 mg DAILY SC ; Start 01/07/17 at 09:00 Baclofen (Lioresal) 10 mg TID PO Last administered on 01/06/17 16:54; Admin Dose 10 MG; Start 01/06/17 at 15:30 Diagnostic Test (Pha) (Accu-Chek) 1 ea 02 XX ; Start 01/07/17 at 02:00 Miscellaneous Information 1 ea NOTE XX ; Start 01/06/17 at 15:00 Glucose (Glutose) 15 gm Q15M PRN PO DECREASED GLUCOSE; Start 01/06/17 at 15:00 Glucose (Glutose) 22.5 gm Q15M PRN PO DECREASED GLUCOSE; Start 01/06/17 at 15: 00 Dextrose (D50w Syringe) 25 ml Q15M PRN IV DECREASED GLUCOSE; Start 01/06/17 at 15:00 Dextrose (D50w Syringe) 50 ml Q15M PRN IV DECREASED GLUCOSE; Start 01/06/17 at 15:00 Glucagon (Glucagen) 1 mg Q15M PRN IM DECREASED GLUCOSE; Start 01/06/17 at 15:00 Glucose (Glutose) 15 gm Q15M PRN BUCCAL DECREASED GLUCOSE; Start 01/06/17 at 15 :00 Morphine Sulfate (morphine) 2 mg Q4H PRN IV chest pain; Start 01/06/17 at 15:00 Fluticasone Propionate (Flonase 0.05% Nasal) 1 spray BID NASAL ; Start 01/06/17 at 21:00 Loratadine (Claritin) 10 mg DAILY PO ; Start 01/07/17 at 09:00 Pantoprazole Sodium (Protonix) 20 mg BID@06,18 PO ; Start 01/06/17 at 18:00 Influenza Virus Vaccine (Fluzone) 0.5 ml ONCE ONCE IM* ; Start 01/06/17 at 21:00 ; Stop 01/06/17 at 21:01 DIEGO BLACKBURN MD Jan 06, 2017 20:37
[2017-01-06] MEDS ORDERED: INFLUENZA VIRUS VACCINE 0.5 ML SYG IM* ONE (21:00)
[2017-01-06] MEDS: FLUTICASONE 0.05% 16 GM NAS SPRAY NASAL SCH ×2 (22:03→22:15)
[2017-01-06] MEDS: METOPROLOL 25 MG TAB PO SCH (22:04)
[2017-01-06] MEDS: FAMOTIDINE 20 MG TAB PO SCH (22:05)
[2017-01-06 23:57] LABS: CREATINE KINASE 71 IU/L (23-200)
[2017-01-06 23:58] VITALS: BP 137/63; RESP 20
[2017-01-07] VITALS (14 sets, daily range): BP systolic 110–149; BP diastolic 62–84; PULSE 50–73; RESP 18–19
[2017-01-07 00:19] LABS: TROPONIN-I < 0.012 ng/ml (0.00-0.12)
[2017-01-07] MEDS: ACCU-CHEK XX SCH (02:00)
[2017-01-07] MEDS: PANTOPRAZOLE SODIUM 20 MG TABEC PO SCH ×2 (06:48→17:19)
[2017-01-07 07:53] LABS: BASOPHIL # 0.1 10^3/ul (0.0-0.1); BASOPHILS % 0.8 % (0.0-2.0); EOSINOPHILS # 0.2 10^3/ul (0.0-0.5); EOSINOPHILS % 2.3 % (0.0-7.0); HEMATOCRIT 39.2 % (37.0-47.0); HEMOGLOBIN 12.7 g/dl (12.0-16.0); LYMPHOCYTES % 26.3 % (15.0-51.0); MEAN CORPUSCULAR HEMOGLOBIN 28.6 pg (29.0-33.0); MEAN CORPUSCULAR HGB CONC 32.4 g/dl (32.0-37.0); MEAN CORPUSCULAR VOLUME 88.3 fl (82.0-101.0); MEAN PLATELET VOLUME 10.3 fl (7.4-10.4); MONOCYTE # 0.6 10^3/ul (0.3-0.9); MONOCYTES % 8.3 % (0.0-11.0); NEUTROPHIL # 4.6 10^3/ul (1.6-7.5); NEUTROPHILS % 61.9 % (39.0-77.0); PLATELET COUNT 321 10^3/UL (140-415); RED BLOOD COUNT 4.44 10^6/ul (4.20-5.40); RED CELL DISTRIBUTION WIDTH 13.2 % (11.5-14.5); WHITE BLOOD COUNT 7.5 10^3/ul (4.8-10.8)
[2017-01-07] MEDS: INSULIN ASPART [NOVOLOG] 3 ML PEN SC SCH ×4 (08:00→21:00)
[2017-01-07 08:11] LABS: CALCIUM 8.8 mg/dl (8.4-10.2); CHOL/HDL RATIO 4.3 RATIO; CREATININE 0.59 mg/dl (0.44-1.00); MAGNESIUM 1.9 mg/dl (1.7-2.5); POTASSIUM 4.1 mmol/L (3.5-5.1)
[2017-01-07 09:09] LABS: THYROID STIMULATING HORMONE 0.917 MIU/L (0.465-4.680)
[2017-01-07] MEDS: LORATADINE 10 MG TAB PO SCH (09:27)
[2017-01-07] MEDS: GABAPENTIN 300 MG CAP PO SCH ×3 (09:27→20:58)
[2017-01-07] MEDS: FAMOTIDINE 20 MG TAB PO SCH ×2 (09:27→20:58)
[2017-01-07] MEDS: DONEPEZIL 5 MG TAB PO SCH (09:27)
[2017-01-07] MEDS: ASPIRIN 81 MG TAB PO SCH (09:28)
[2017-01-07] MEDS: METOPROLOL 25 MG TAB PO SCH ×2 (09:28→20:58)
[2017-01-07] MEDS: BACLOFEN 10 MG TAB PO SCH ×3 (09:28→20:57)
[2017-01-07] MEDS: ENOXAPARIN 40 MG/0.4 ML SYG SC SCH (09:34)
--- NOTE | 2017-01-07 15:11 | PN ---
Date/Time of Note Date/Time of Note DATE: 01/07/17 TIME: 15:05 Assessment/Plan VTE Prophylaxis VTE Prophylaxis Intervention: SCD's Lines/Catheters IV Catheter Type (from Nrs): Saline Lock Urinary Cath still in place: No Assessment/Plan Chief Complaint/Hosp Course 1. Chest pain rule out ACS - Does not sound cardiac in nature but given patient history of DM will pursue workup - Troponin negative - ECHO ordered - EKG showed 1st degree AV block - Cardiology consult placed, recs appreciated - Nitro and morphine PRN 2. Diabetes Mellitus - Patient states sugars controlled on PO meds - will hold metformin and place on ISS 3. Trigeminal Neuralgia - Will try on Baclofen - If no relief will titrate up on Gabapentin or try Tegretol - Will consider Neurology if relief not found given preventing patient from being able to eat/talk - h/o surgery in 2010 to help with trigeminal neuralgia. Has neurologist she follows as outpatient but forgets name -neurology consulted for persistent pain. recs appreciated, Dr. Herrera. 4. Sciatica 2/2 osteoarthritis of lumbar spine - Patient c/o LLE neuropathy. Told in past she has OA of lumbar spine but refusing surgery - Will order Baclofen 10 mg TID 5. RUQ pain - minimal -US gallbladder shows fatty liver 6. Diet - Heart healthy 7. Code - Full 8. DVT prophylaxis - LMWH Disposition - Admit to telemetry for cardiac workup, pending neurology recommendations as it appears pain is causing patient to not eat at times. Problems: Subjective 24 Hr Interval Summary Free Text/Dictation patient states abdominal pain is very minimal at this time. only real concern is left cheek nerve pain. Exam/Review of Systems Vital Signs Vitals Vital Signs Date Time Temp Pulse Resp B/P Pulse Ox O2 Delivery O2 Flow Rate FiO2 01/07/17 12:00 55 01/07/17 11:48 98.3 18 131/62 100 01/06/17 13:54 Room Air Exam Physical exam General: Patient is laying in bed and answers questions appropriately Mentation: Patient is alert and oriented 4, Head: Normocephalic atraumatic Eyes: EOMI, pupils reactive to light Neck: Supple, nontender, midline Respiratory: Clear to auscultation bilaterally Cardiovascular: regular rate, no obvious murmurs Gastrointestinal: non-tender to palpation, except very mild tenderness RUQ, bowel sounds heard. Neurological: Moves all extremities spontaneously Skin: No new skin lesions Results Result Diagram: 01/07/17 0656 01/07/17 0656 Results 24 hrs Laboratory Tests Test 01/06/17 16:53 01/06/17 17:16 01/06/17 22:13 01/06/17 23:31 Bedside Glucose 104 105 Creatine Kinase 81 71 Creatine Kinase Index 0.7 0.7 Creatinine Kinase MB (Mass) 0.57 0.50 Troponin I < 0.012 < 0.012 Test 01/07/17 06:56 01/07/17 08:23 01/07/17 12:09 White Blood Count 7.5 Red Blood Count 4.44 Hemoglobin 12.7 Hematocrit 39.2 Mean Corpuscular Volume 88.3 Mean Corpuscular Hemoglobin 28.6 L Mean Corpuscular Hemoglobin Concent 32.4 Red Cell Distribution Width 13.2 Platelet Count 321 Mean Platelet Volume 10.3 Neutrophils % 61.9 Lymphocytes % 26.3 Monocytes % 8.3 Eosinophils % 2.3 Basophils % 0.8 Nucleated Red Blood Cells % 0.0 Neutrophils # 4.6 Lymphocytes # 2.0 Monocytes # 0.6 Eosinophils # 0.2 Basophils # 0.1 Nucleated Red Blood Cells # 0.0 Sodium Level 142 Potassium Level 4.1 Chloride Level 108 Carbon Dioxide Level 28 Anion Gap 10 Blood Urea Nitrogen 18 Creatinine 0.59 Glucose Level 120 Hemoglobin A1c 6.4 H Calcium Level 8.8 Magnesium Level 1.9 Triglycerides Level 147 Cholesterol Level 164 LDL Cholesterol, Calculated 97 HDL Cholesterol 38 Cholesterol/HDL Ratio 4.3 Thyroid Stimulating Hormone (TSH) 0.917 Bedside Glucose 115 93 Medications Medications Current Medications Aspirin (Aspirin) 81 mg DAILY PO Last administered on 01/07/17 09:28; Admin Dose 81 MG; Start 01/07/17 at 09:00 Donepezil HCl (Aricept) 5 mg DAILY PO Last administered on 01/07/17 09:27; Admin Dose 5 MG; Start 01/07/17 at 09:00 Gabapentin (Neurontin) 300 mg TID PO Last administered on 01/07/17 12:40; Admin Dose 300 MG; Start 01/06/17 at 15:00 Metoprolol Tartrate (Lopressor) 25 mg BID PO Last administered on 01/07/17 09: 28; Admin Dose 25 MG; Start 01/06/17 at 21:00 Ondansetron HCl (Zofran Inj) 4 mg Q6H PRN IV NAUSEA AND/OR VOMITING; Start at 14:30 Acetaminophen (Tylenol Tab) 650 mg Q6H PRN PO PAIN LEVEL 1-3 OR FEVER Last administered on 01/07/17 09:27; Admin Dose 650 MG; Start 01/06/17 at 14:30 Famotidine (Pepcid) 20 mg Q12 PO Last administered on 01/07/17 09:27; Admin Dose 20 MG; Start 01/06/17 at 21:00 Enoxaparin Sodium (Lovenox) 40 mg DAILY SC Last administered on 01/07/17 09:34 ; Admin Dose 40 MG; Start 01/07/17 at 09:00 Baclofen (Lioresal) 10 mg TID PO Last administered on 01/07/17 12:40; Admin Dose 10 MG; Start 01/06/17 at 15:30 Diagnostic Test (Pha) (Accu-Chek) 1 ea 02 XX ; Start 01/07/17 at 02:00 Miscellaneous Information 1 ea NOTE XX ; Start 01/06/17 at 15:00 Glucose (Glutose) 15 gm Q15M PRN PO DECREASED GLUCOSE; Start 01/06/17 at 15:00 Glucose (Glutose) 22.5 gm Q15M PRN PO DECREASED GLUCOSE; Start 01/06/17 at 15: 00 Dextrose (D50w Syringe) 25 ml Q15M PRN IV DECREASED GLUCOSE; Start 01/06/17 at 15:00 Dextrose (D50w Syringe) 50 ml Q15M PRN IV DECREASED GLUCOSE; Start 01/06/17 at 15:00 Glucagon (Glucagen) 1 mg Q15M PRN IM DECREASED GLUCOSE; Start 01/06/17 at 15:00 Glucose (Glutose) 15 gm Q15M PRN BUCCAL DECREASED GLUCOSE; Start 01/06/17 at 15 :00 Fluticasone Propionate (Flonase 0.05% Nasal) 1 spray BID NASAL Last administered on 01/06/17 22:15; Admin Dose 1 SPRAY; Start 01/06/17 at 21:00 Loratadine (Claritin) 10 mg DAILY PO Last administered on 01/07/17 09:27; Admin Dose 10 MG; Start 01/07/17 at 09:00 Pantoprazole Sodium (Protonix) 20 mg BID@06,18 PO Last administered on 06:48; Admin Dose 20 MG; Start 01/06/17 at 18:00 Morphine Sulfate (morphine) 2 mg Q2H PRN IV pain Last administered on 22:04; Admin Dose 2 MG; Start 01/06/17 at 21:00 JOSE DIAL Jan 07, 2017 15:11
--- NOTE | 2017-01-07 16:06 | RADRPT ---
Echocardiogram Report Patient Name: AMANDA LANDA Gender: Female Date: 1955 Study Date: 07-Jan-2017 Senior Technical Specialist: Nelson Ruelas [facility] Location: [id number] Ref. Physician: NIK NELSON Quality: Adequate Procedures: Transthoracic echocardiogram with complete 2D, M-Mode, and doppler examination. Indications: Chest Pain, h/o DM. 2D/M Mode Doppler Measurement Value Normal Ranges Measurement Value Normal Ranges LVIDd 2D 4.0 3.5 - 5.6 cm AV Peak Phill 1.2 m/sec LVIDs 2D 2.7 2.1 - 4.1 cm AV Peak PG 6.2 mmHg LVPWd 2D 1.3 0.6 - 1.1 cm LVOT Peak Phill 1.0 m/sec IVSd 2D 1.5 0.6 - 1.1 cm LVOT Peak PG 3.8 mmHg AoR Diam 2D 2.5 2.0 - 3.7 cm MV E Peak Phill 0.7 m/sec EDV 2D 68.3 cm3 MV A Peak Phill 0.9 m/sec ESV 2D 19.7 cm3 MV E/A 0.7 LA Dimen 2D 3.2 2.3 - 4.0 cm MV Decel Time 277 msec MV Decel Towner 2 MV E/A 0.7 TR Peak Phill 1.6 m/sec TR Peak PG 10.1 mmHg RVSP 13.0 mmHg Findings Left Ventricle: Normal left ventricular systolic function. Normal left ventricular cavity size. Moderate concentric left ventricular hypertrophy. Ejection fraction is visually estimated at 65 %. Tissue Doppler/Mitral Doppler indices are consistent with impaired relaxation (Stage I diastolic dysfunction). Right Ventricle: Normal right ventricular size. Normal right ventricular systolic function. Left Atrium: The left atrium is normal in size. Right Atrium: The right atrium is normal in size. Mitral Valve: Mitral valve leaflets appear mildly thickened. Mild mitral annular calcification. Trace mitral regurgitation. Aortic Valve: Normal appearance of the aortic valve. No significant aortic stenosis or insufficiency. Tricuspid Valve: Normal appearance of the tricuspid valve. Estimated peak PA systolic pressure 13 mmHg. There is trace tricuspid regurgitation. Pulmonic Valve: Normal pulmonic valve appearance. Pericardium: Normal pericardium with no significant pericardial effusion. Aorta: Normal aortic root. IVC: Normal size and normal respiratory collapse consistent with normal right atrial pressure. Conclusions 1.Normal left ventricular systolic function. Normal left ventricular cavity size. Moderate concentric left ventricular hypertrophy. Ejection fraction is visually estimated at 65 %. Tissue Doppler/Mitral Doppler indices are `maybe` consistent with impaired relaxation (Stage I diastolic dysfunction). 2.Normal pulmonary artery pressure suggesting essentially a normally functioning heart. Electronically Signed By: Stefan Yousif 07-Jan-2017 16:05:35 -0300 Patient Name: AMANDA LANDA Study Date: 07-Jan-2017 [id number]
--- NOTE | 2017-01-07 17:02 | CONS ---
Date/Time of Note Date/Time of Note DATE: 01/07/17 TIME: 16:53 Assessment/Plan Assessment/Plan Chief Complaint/Hosp Course 61 yo female with history of DM, sciatica, trigeminal neuralgia with prior surgical intervention worsening of sx. No history of patient being on tegretol. MRI Brain w contrast to eval may start Tegretol 100 mg BID once narcotics d/c to avoid interactions will follow Problems: Consultation Date/Type/Reason Admit Date/Time Jan 06, 2017 at 12:58 Date of Consultation: Jan 07, 2017 Type of Consultation: Neurology Reason for Consultation trigeminal neuralgia Referring Provider: JOSE DIAL Hx of Present Illness 61 yo female with DM, sciatic pain, hx of Trigeminal neuralgia reportedly had procedure done in 2010 to alleviate sx now p/w chest pain worsening facial pain upon chewing. Baclofen started w minimal relief. She denies being on Tegretol in the past. Patient is unable to provide further hx regarding type of surgical procedure she has had in the past unclear if there was vascular abnormality associated. Eyes: visual change ENT: other (pain left side of face with opening mouth and talking) Respiratory: shortness of breath, No cough, No sputum, No wheezing Cardiovascular: chest pain, No edema, No palpitations Gastrointestinal: diarrhea, nausea, pain, No constipation, No vomiting Genitourinary: no complaints Musculoskeletal: back pain, bone/joint pain Skin: no complaints Neurologic: headache Lymphatic: no complaints Psychological: nl mood/affect Immunologic: no complaints Past Medical History Medical History: diabetes, hypertension Past Surgical History Past Surgical Hx: other (Left knee surgery x1, Right knee surgeryx3, surgery on left facial nerve) Social History Alcohol Use: none Smoking Status: Never smoker Drug Use: none Exam/Review of Systems Vital Signs Vitals Vital Signs Date Time Temp Pulse Resp B/P Pulse Ox O2 Delivery O2 Flow Rate FiO2 01/07/17 16:03 98.4 64 19 135/75 100 01/06/17 13:54 Room Air Exam Constitutional: alert, oriented, well developed Neurological: [employer] II-XII intact, DTR's symmetric, nl mental status, nl speech, nl strength Results Result Diagram: 01/07/17 0656 01/07/17 0656 Results 24 hrs Laboratory Tests Test 01/06/17 17:16 01/06/17 22:13 01/06/17 23:31 01/07/17 06:56 Creatine Kinase 81 71 Creatine Kinase Index 0.7 0.7 Creatinine Kinase MB (Mass) 0.57 0.50 Troponin I < 0.012 < 0.012 Bedside Glucose 105 White Blood Count 7.5 Red Blood Count 4.44 Hemoglobin 12.7 Hematocrit 39.2 Mean Corpuscular Volume 88.3 Mean Corpuscular Hemoglobin 28.6 L Mean Corpuscular Hemoglobin Concent 32.4 Red Cell Distribution Width 13.2 Platelet Count 321 Mean Platelet Volume 10.3 Neutrophils % 61.9 Lymphocytes % 26.3 Monocytes % 8.3 Eosinophils % 2.3 Basophils % 0.8 Nucleated Red Blood Cells % 0.0 Neutrophils # 4.6 Lymphocytes # 2.0 Monocytes # 0.6 Eosinophils # 0.2 Basophils # 0.1 Nucleated Red Blood Cells # 0.0 Sodium Level 142 Potassium Level 4.1 Chloride Level 108 Carbon Dioxide Level 28 Anion Gap 10 Blood Urea Nitrogen 18 Creatinine 0.59 Glucose Level 120 Hemoglobin A1c 6.4 H Calcium Level 8.8 Magnesium Level 1.9 Triglycerides Level 147 Cholesterol Level 164 LDL Cholesterol, Calculated 97 HDL Cholesterol 38 Cholesterol/HDL Ratio 4.3 Thyroid Stimulating Hormone (TSH) 0.917 Test 01/07/17 08:23 01/07/17 12:09 Bedside Glucose 115 93 Medications Medications Current Medications Aspirin (Aspirin) 81 mg DAILY PO Last administered on 01/07/17 09:28; Admin Dose 81 MG; Start 01/07/17 at 09:00 Donepezil HCl (Aricept) 5 mg DAILY PO Last administered on 01/07/17 09:27; Admin Dose 5 MG; Start 01/07/17 at 09:00 Gabapentin (Neurontin) 300 mg TID PO Last administered on 01/07/17 12:40; Admin Dose 300 MG; Start 01/06/17 at 15:00 Metoprolol Tartrate (Lopressor) 25 mg BID PO Last administered on 01/07/17 09: 28; Admin Dose 25 MG; Start 01/06/17 at 21:00 Ondansetron HCl (Zofran Inj) 4 mg Q6H PRN IV NAUSEA AND/OR VOMITING; Start at 14:30 Acetaminophen (Tylenol Tab) 650 mg Q6H PRN PO PAIN LEVEL 1-3 OR FEVER Last administered on 01/07/17 09:27; Admin Dose 650 MG; Start 01/06/17 at 14:30 Famotidine (Pepcid) 20 mg Q12 PO Last administered on 01/07/17 09:27; Admin Dose 20 MG; Start 01/06/17 at 21:00 Enoxaparin Sodium (Lovenox) 40 mg DAILY SC Last administered on 01/07/17 09:34 ; Admin Dose 40 MG; Start 01/07/17 at 09:00 Baclofen (Lioresal) 10 mg TID PO Last administered on 01/07/17 12:40; Admin Dose 10 MG; Start 01/06/17 at 15:30 Diagnostic Test (Pha) (Accu-Chek) 1 ea 02 XX ; Start 01/07/17 at 02:00 Miscellaneous Information 1 ea NOTE XX ; Start 01/06/17 at 15:00 Glucose (Glutose) 15 gm Q15M PRN PO DECREASED GLUCOSE; Start 01/06/17 at 15:00 Glucose (Glutose) 22.5 gm Q15M PRN PO DECREASED GLUCOSE; Start 01/06/17 at 15: 00 Dextrose (D50w Syringe) 25 ml Q15M PRN IV DECREASED GLUCOSE; Start 01/06/17 at 15:00 Dextrose (D50w Syringe) 50 ml Q15M PRN IV DECREASED GLUCOSE; Start 01/06/17 at 15:00 Glucagon (Glucagen) 1 mg Q15M PRN IM DECREASED GLUCOSE; Start 01/06/17 at 15:00 Glucose (Glutose) 15 gm Q15M PRN BUCCAL DECREASED GLUCOSE; Start 01/06/17 at 15 :00 Fluticasone Propionate (Flonase 0.05% Nasal) 1 spray BID NASAL Last administered on 01/06/17 22:15; Admin Dose 1 SPRAY; Start 01/06/17 at 21:00 Loratadine (Claritin) 10 mg DAILY PO Last administered on 01/07/17 09:27; Admin Dose 10 MG; Start 01/07/17 at 09:00 Pantoprazole Sodium (Protonix) 20 mg BID@,18 PO Last administered on 06:48; Admin Dose 20 MG; Start 01/06/17 at 18:00 Morphine Sulfate (morphine) 2 mg Q2H PRN IV pain Last administered on 22:04; Admin Dose 2 MG; Start 01/06/17 at 21:00 SENAIT MORELOS MD Jan 07, 2017 17:02
--- NOTE | 2017-01-07 20:36 | CONS ---
Date/Time of Note Date/Time of Note DATE: 01/07/17 TIME: 20:24 Assessment/Plan Assessment/Plan Chief Complaint/Hosp Course IMP: 1.Chest pain-negative trop x 3/NL EF by echo. NO sig abnl on ecg.Atypical in description except relief with SL NTG 2.HTN 3.Trigeminal neuralgia/Jaw pain 4.DM 5. Dyslipidemia-low HDL Recc: -Tele -serial ecg -Follow-up MRI -To be started on tegretol -Continue BB/ASA/PRN SL NTG -for recurrent concerning sx will proceed with inpatient stress testing otherswise reasonable for further outpatient eval and stress testing Problems: Consultation Date/Type/Reason Admit Date/Time Jan 06, 2017 at 12:58 Initial Consult Date 01/07/17 Type of Consultation: cardiology Reason for Consultation chest pain Referring Provider: JOSE DIAL Exam/Review of Systems Vital Signs Vitals Vital Signs Date Time Temp Pulse Resp B/P Pulse Ox O2 Delivery O2 Flow Rate FiO2 01/07/17 19:42 98.5 75 18 148/75 96 01/06/17 13:54 Room Air Exam Review of Systems: CONSTITUTIONAL: No fevers, chills. PULMONARY: No sob CARDIOVASCULAR: intermittent chest pain GASTROINTESTINAL: No nausea/vomiting. GENITOURINARY: No hematuria/dysuria. MUSCULOSKELETAL: No myagias/arthalgias. PSYCHIATRIC: The patient denies depression. NEUROLOGIC: No weakness Constitutional: alert Psych: no complaints Head: normocephalic ENMT: mucosa pink and moist Neck: jvd (8-9 cm water), supple Respiratory: diminished breath sounds (at bases/B) Cardiovascular: regular rate and rhythm Gastrointestinal: non-tender, soft Musculoskeletal: muscle tone (normal) Extremities: edema (none) Neurological: other (No focal deficits) Results Result Diagram: 01/07/17 0656 01/07/17 0656 Results 24 hrs Laboratory Tests Test 01/06/17 22:13 01/06/17 23:31 01/07/17 06:56 01/07/17 08:23 Bedside Glucose 105 115 Creatine Kinase 71 Creatine Kinase Index 0.7 Creatinine Kinase MB (Mass) 0.50 Troponin I < 0.012 White Blood Count 7.5 Red Blood Count 4.44 Hemoglobin 12.7 Hematocrit 39.2 Mean Corpuscular Volume 88.3 Mean Corpuscular Hemoglobin 28.6 L Mean Corpuscular Hemoglobin Concent 32.4 Red Cell Distribution Width 13.2 Platelet Count 321 Mean Platelet Volume 10.3 Neutrophils % 61.9 Lymphocytes % 26.3 Monocytes % 8.3 Eosinophils % 2.3 Basophils % 0.8 Nucleated Red Blood Cells % 0.0 Neutrophils # 4.6 Lymphocytes # 2.0 Monocytes # 0.6 Eosinophils # 0.2 Basophils # 0.1 Nucleated Red Blood Cells # 0.0 Sodium Level 142 Potassium Level 4.1 Chloride Level 108 Carbon Dioxide Level 28 Anion Gap 10 Blood Urea Nitrogen 18 Creatinine 0.59 Glucose Level 120 Hemoglobin A1c 6.4 H Calcium Level 8.8 Magnesium Level 1.9 Triglycerides Level 147 Cholesterol Level 164 LDL Cholesterol, Calculated 97 HDL Cholesterol 38 Cholesterol/HDL Ratio 4.3 Thyroid Stimulating Hormone (TSH) 0.917 Test 01/07/17 12:09 01/07/17 17:19 Bedside Glucose 93 101 Medications Medications Current Medications Aspirin (Aspirin) 81 mg DAILY PO Last administered on 01/07/17 09:28; Admin Dose 81 MG; Start 01/07/17 at 09:00 Donepezil HCl (Aricept) 5 mg DAILY PO Last administered on 01/07/17 09:27; Admin Dose 5 MG; Start 01/07/17 at 09:00 Gabapentin (Neurontin) 300 mg TID PO Last administered on 01/07/17 12:40; Admin Dose 300 MG; Start 01/06/17 at 15:00 Metoprolol Tartrate (Lopressor) 25 mg BID PO Last administered on 01/07/17 09: 28; Admin Dose 25 MG; Start 01/06/17 at 21:00 Ondansetron HCl (Zofran Inj) 4 mg Q6H PRN IV NAUSEA AND/OR VOMITING; Start at 14:30 Acetaminophen (Tylenol Tab) 650 mg Q6H PRN PO PAIN LEVEL 1-3 OR FEVER Last administered on 01/07/17 09:27; Admin Dose 650 MG; Start 01/06/17 at 14:30 Famotidine (Pepcid) 20 mg Q12 PO Last administered on 01/07/17 09:27; Admin Dose 20 MG; Start 01/06/17 at 21:00 Enoxaparin Sodium (Lovenox) 40 mg DAILY SC Last administered on 01/07/17 09:34 ; Admin Dose 40 MG; Start 01/07/17 at 09:00 Baclofen (Lioresal) 10 mg TID PO Last administered on 01/07/17 12:40; Admin Dose 10 MG; Start 01/06/17 at 15:30 Diagnostic Test (Pha) (Accu-Chek) 1 ea 02 XX ; Start 01/07/17 at 02:00 Miscellaneous Information 1 ea NOTE XX ; Start 01/06/17 at 15:00 Glucose (Glutose) 15 gm Q15M PRN PO DECREASED GLUCOSE; Start 01/06/17 at 15:00 Glucose (Glutose) 22.5 gm Q15M PRN PO DECREASED GLUCOSE; Start 01/06/17 at 15: 00 Dextrose (D50w Syringe) 25 ml Q15M PRN IV DECREASED GLUCOSE; Start 01/06/17 at 15:00 Dextrose (D50w Syringe) 50 ml Q15M PRN IV DECREASED GLUCOSE; Start 01/06/17 at 15:00 Glucagon (Glucagen) 1 mg Q15M PRN IM DECREASED GLUCOSE; Start 01/06/17 at 15:00 Glucose (Glutose) 15 gm Q15M PRN BUCCAL DECREASED GLUCOSE; Start 01/06/17 at 15 :00 Fluticasone Propionate (Flonase 0.05% Nasal) 1 spray BID NASAL Last administered on 01/06/17 22:15; Admin Dose 1 SPRAY; Start 01/06/17 at 21:00 Loratadine (Claritin) 10 mg DAILY PO Last administered on 01/07/17 09:27; Admin Dose 10 MG; Start 01/07/17 at 09:00 Pantoprazole Sodium (Protonix) 20 mg BID@06,18 PO Last administered on 17:19; Admin Dose 20 MG; Start 01/06/17 at 18:00 Morphine Sulfate (morphine) 2 mg Q2H PRN IV pain Last administered on 22:04; Admin Dose 2 MG; Start 01/06/17 at 21:00 MIRELA DYE Jan 07, 2017 20:34
[2017-01-07] MEDS: FLUTICASONE 0.05% 16 GM NAS SPRAY NASAL SCH (20:57)
[2017-01-08] VITALS (7 sets, daily range): BP systolic 114–140; BP diastolic 58–77; PULSE 58–74; RESP 17–20
[2017-01-08] MEDS: ACCU-CHEK XX SCH (02:00)
[2017-01-08] MEDS: INSULIN ASPART [NOVOLOG] 3 ML PEN SC SCH ×2 (08:00→12:27)
[2017-01-08] MEDS: PANTOPRAZOLE SODIUM 20 MG TABEC PO SCH (08:07)
[2017-01-08 08:42] LABS: BASOPHIL # 0.1 10^3/ul (0.0-0.1); BASOPHILS % 0.8 % (0.0-2.0); EOSINOPHILS # 0.2 10^3/ul (0.0-0.5); EOSINOPHILS % 3.1 % (0.0-7.0); HEMATOCRIT 42.4 % (37.0-47.0); HEMOGLOBIN 13.4 g/dl (12.0-16.0); LYMPHOCYTES # 2.2 10^3/ul (0.8-2.9); LYMPHOCYTES % 29.2 % (15.0-51.0); MEAN CORPUSCULAR HEMOGLOBIN 28.2 pg (29.0-33.0); MEAN CORPUSCULAR HGB CONC 31.6 g/dl (32.0-37.0); MEAN CORPUSCULAR VOLUME 89.3 fl (82.0-101.0); MEAN PLATELET VOLUME 10.4 fl (7.4-10.4); MONOCYTE # 0.7 10^3/ul (0.3-0.9); MONOCYTES % 9.1 % (0.0-11.0); NEUTROPHIL # 4.3 10^3/ul (1.6-7.5); NEUTROPHILS % 57.4 % (39.0-77.0); PLATELET COUNT 344 10^3/UL (140-415); RED BLOOD COUNT 4.75 10^6/ul (4.20-5.40); RED CELL DISTRIBUTION WIDTH 13.2 % (11.5-14.5); WHITE BLOOD COUNT 7.5 10^3/ul (4.8-10.8)
[2017-01-08] MEDS: BACLOFEN 10 MG TAB PO SCH (09:38)
[2017-01-08] MEDS: LORATADINE 10 MG TAB PO SCH (09:38)
[2017-01-08] MEDS: FLUTICASONE 0.05% 16 GM NAS SPRAY NASAL SCH (09:38)
[2017-01-08] MEDS: ASPIRIN 81 MG TAB PO SCH (09:38)
[2017-01-08] MEDS: DONEPEZIL 5 MG TAB PO SCH (09:38)
[2017-01-08] MEDS: GABAPENTIN 300 MG CAP PO SCH ×2 (09:38→13:00)
[2017-01-08] MEDS: FAMOTIDINE 20 MG TAB PO SCH (09:38)
[2017-01-08] MEDS: METOPROLOL 25 MG TAB PO SCH (09:39)
[2017-01-08] MEDS: ENOXAPARIN 40 MG/0.4 ML SYG SC SCH (09:41)
[2017-01-08 09:45] LABS: CALCIUM 9.1 mg/dl (8.4-10.2); CREATININE 0.64 mg/dl (0.44-1.00); PHOSPHORUS 4.5 mg/dl (2.5-4.9); POTASSIUM 4.1 mmol/L (3.5-5.1)
--- NOTE | 2017-01-08 10:02 | CONS ---
Date/Time of Note Date/Time of Note DATE: 01/08/17 TIME: 10:00 Assessment/Plan Assessment/Plan Additional Assessment/Plan 1.Chest pain-negative trop x 3/NL EF by echo. NO sig abnl on ecg.Atypical in description except relief with SL NTG - per DR. Kan - current concerning sx will proceed with inpatient stress testing otherswise reasonable for further outpatient eval and stress testing - no CP now. 2.HTN - wel Rx overall. 3.Trigeminal neuralgia/Jaw pain - likely cause of discomfort. 4.DM - con't to keep euvolemic. 5. Dyslipidemia-low HDL Consultation Date/Type/Reason Admit Date/Time Jan 06, 2017 at 12:58 Initial Consult Date 01/07/17 Type of Consultation: cardiology Referring Provider: JOSE DIAL 24 HR Interval Summary Free Text/Dictation NO CP r/o IN. ROS: No fever, no chills, no nausea, no vomiting, no diarrhea/constipation No recent weight changes No chest pain, no PND, no orthopnea No dizziness, blurred vision No thirst, no heat or cold intolerance Exam/Review of Systems Vital Signs Vitals Vital Signs Date Time Temp Pulse Resp B/P Pulse Ox O2 Delivery O2 Flow Rate FiO2 01/08/17 08:32 58 01/08/17 08:05 97.7 18 140/77 100 01/07/17 23:30 2.0 01/06/17 13:54 Room Air Intake and Output 01/07/17 01/07/17 01/08/17 15:00 23:00 07:00 Intake Total 800 ml Balance 800 ml Exam General: WN/WD/NAD, AOx 3 HEENT: Unicetric/atraumatic/EOMI (follows commands) NECK: JVD elevated, no thyromegaly Lymph: no lymphadenopathy HEART: regular with no S3, II/ systolic murmur at apex LUNGS: Coarse sounds ABD: soft, NT, ND, +BS : Intact Neuro: non focal SKIN: chronic changes EXT: trace edema Results Result Diagram: 01/08/17 0715 01/08/17 0715 Results 24 hrs Laboratory Tests Test 01/07/17 12:09 01/07/17 17:19 01/07/17 21:01 01/08/17 07:15 Bedside Glucose 93 101 125 White Blood Count 7.5 Red Blood Count 4.75 Hemoglobin 13.4 Hematocrit 42.4 Mean Corpuscular Volume 89.3 Mean Corpuscular Hemoglobin 28.2 L Mean Corpuscular Hemoglobin Concent 31.6 L Red Cell Distribution Width 13.2 Platelet Count 344 Mean Platelet Volume 10.4 Neutrophils % 57.4 Lymphocytes % 29.2 Monocytes % 9.1 Eosinophils % 3.1 Basophils % 0.8 Nucleated Red Blood Cells % 0.0 Neutrophils # 4.3 Lymphocytes # 2.2 Monocytes # 0.7 Eosinophils # 0.2 Basophils # 0.1 Nucleated Red Blood Cells # 0.0 Sodium Level 142 Potassium Level 4.1 Chloride Level 105 Carbon Dioxide Level 30 Anion Gap 11 Blood Urea Nitrogen 18 Creatinine 0.64 Glucose Level 116 Calcium Level 9.1 Phosphorus Level 4.5 Magnesium Level 2.0 Test 01/08/17 08:31 Bedside Glucose 125 Medications Medications Current Medications Aspirin (Aspirin) 81 mg DAILY PO Last administered on 01/08/17 09:38; Admin Dose 81 MG; Start 01/07/17 at 09:00 Donepezil HCl (Aricept) 5 mg DAILY PO Last administered on 01/08/17 09:38; Admin Dose 5 MG; Start 01/07/17 at 09:00 Gabapentin (Neurontin) 300 mg TID PO Last administered on 01/08/17 09:38; Admin Dose 300 MG; Start 01/06/17 at 15:00 Metoprolol Tartrate (Lopressor) 25 mg BID PO Last administered on 01/08/17 09: 39; Admin Dose 25 MG; Start 01/06/17 at 21:00 Ondansetron HCl (Zofran Inj) 4 mg Q6H PRN IV NAUSEA AND/OR VOMITING; Start at 14:30 Acetaminophen (Tylenol Tab) 650 mg Q6H PRN PO PAIN LEVEL 1-3 OR FEVER Last administered on 01/07/17 09:27; Admin Dose 650 MG; Start 01/06/17 at 14:30 Famotidine (Pepcid) 20 mg Q12 PO Last administered on 01/08/17 09:38; Admin Dose 20 MG; Start 01/06/17 at 21:00 Enoxaparin Sodium (Lovenox) 40 mg DAILY SC Last administered on 01/08/17 09:41 ; Admin Dose 40 MG; Start 01/07/17 at 09:00 Baclofen (Lioresal) 10 mg TID PO Last administered on 01/08/17 09:38; Admin Dose 10 MG; Start 01/06/17 at 15:30 Diagnostic Test (Pha) (Accu-Chek) 1 ea 02 XX ; Start 01/07/17 at 02:00 Miscellaneous Information 1 ea NOTE XX ; Start 01/06/17 at 15:00 Glucose (Glutose) 15 gm Q15M PRN PO DECREASED GLUCOSE; Start 01/06/17 at 15:00 Glucose (Glutose) 22.5 gm Q15M PRN PO DECREASED GLUCOSE; Start 01/06/17 at 15: 00 Dextrose (D50w Syringe) 25 ml Q15M PRN IV DECREASED GLUCOSE; Start 01/06/17 at 15:00 Dextrose (D50w Syringe) 50 ml Q15M PRN IV DECREASED GLUCOSE; Start 01/06/17 at 15:00 Glucagon (Glucagen) 1 mg Q15M PRN IM DECREASED GLUCOSE; Start 01/06/17 at 15:00 Glucose (Glutose) 15 gm Q15M PRN BUCCAL DECREASED GLUCOSE; Start 01/06/17 at 15 :00 Fluticasone Propionate (Flonase 0.05% Nasal) 1 spray BID NASAL Last administered on 01/08/17 09:38; Admin Dose 1 SPRAY; Start 01/06/17 at 21:00 Loratadine (Claritin) 10 mg DAILY PO Last administered on 01/08/17 09:38; Admin Dose 10 MG; Start 01/07/17 at 09:00 Pantoprazole Sodium (Protonix) 20 mg BID@06,18 PO Last administered on 08:07; Admin Dose 20 MG; Start 01/06/17 at 18:00 Morphine Sulfate (morphine) 2 mg Q2H PRN IV pain Last administered on 22:04; Admin Dose 2 MG; Start 01/06/17 at 21:00 AMANDA QUINONES MD Jan 08, 2017 10:02
[2017-01-08] MEDS ORDERED: carBAMAZepine CHEW 100 MG CHEW PO SCH (11:00)
--- NOTE | 2017-01-08 11:19 | PDOCDIS ---
Discharge Instructions CONDITION Patient Condition: Fair HOME CARE INSTRUCTIONS: Special Diet: CARDIAC DIET ACTIVITY: Activity Restrictions: Slowly Increase Activity FOLLOW UP/APPOINTMENTS Follow-up Plan 1. Follow up with your primary care provider and your neurologist for MRI of head for neuralgia 2. Stop neurontin and tramadol 3. Do not mix new medication with pain medication (tylenol ok is small doses) 4. Start new medication carbamazepine 100mg twice a day for cheek pain 5. If chest pain continues, return to the ED 6. Follow up with your primary care provider for cardiac stress test for resolved chest pain 7. Continue other medication, except neurontin and tramadol until you see your primary care provider and neurologist. JOSE DIAL Jan 08, 2017 11:19
[2017-01-08] MEDS ORDERED: CARB100T2 PO (11:20)
--- NOTE | 2017-01-08 11:58 | CONS ---
Date/Time of Note Date/Time of Note DATE: 01/08/17 TIME: 11:56 Consult Date/Type/Reason Admit Date/Time Jan 06, 2017 at 12:58 Initial Consult Date 01/07/17 Type of Consultation: Neurology Reason for Consultation facial pain, possible trigeminal neuralgia Ordering Provider: JOSE DIAL Subjective facial pain, planned for dc and will start Tegretol w outpatient follow up Objective Vital Signs Date Time Temp Pulse Resp B/P Pulse Ox O2 Delivery O2 Flow Rate FiO2 01/08/17 11:46 97.9 78 17 137/72 99 01/07/17 23:30 2.0 01/06/17 13:54 Room Air Intake and Output 01/07/17 01/07/17 01/08/17 15:00 23:00 07:00 Intake Total 800 ml Balance 800 ml Exam awake alert oriented x3 no aphasia follows all commands CN-[id number] intact Motor 5/5 throughout Coordination no ataxia Reflexes 2+ throughout Results/Medications Result Diagram: 01/08/17 0715 01/08/17 0715 Results 24 hrs Laboratory Tests Test 01/07/17 12:09 01/07/17 17:19 01/07/17 21:01 01/08/17 07:15 Bedside Glucose 93 101 125 White Blood Count 7.5 Red Blood Count 4.75 Hemoglobin 13.4 Hematocrit 42.4 Mean Corpuscular Volume 89.3 Mean Corpuscular Hemoglobin 28.2 L Mean Corpuscular Hemoglobin Concent 31.6 L Red Cell Distribution Width 13.2 Platelet Count 344 Mean Platelet Volume 10.4 Neutrophils % 57.4 Lymphocytes % 29.2 Monocytes % 9.1 Eosinophils % 3.1 Basophils % 0.8 Nucleated Red Blood Cells % 0.0 Neutrophils # 4.3 Lymphocytes # 2.2 Monocytes # 0.7 Eosinophils # 0.2 Basophils # 0.1 Nucleated Red Blood Cells # 0.0 Sodium Level 142 Potassium Level 4.1 Chloride Level 105 Carbon Dioxide Level 30 Anion Gap 11 Blood Urea Nitrogen 18 Creatinine 0.64 Glucose Level 116 Calcium Level 9.1 Phosphorus Level 4.5 Magnesium Level 2.0 Test 01/08/17 08:31 Bedside Glucose 125 Medications Current Medications Aspirin (Aspirin) 81 mg DAILY PO Last administered on 01/08/17t 09:38; Admin Dose 81 MG; Start 01/07/17 at 09:00 Donepezil HCl (Aricept) 5 mg DAILY PO Last administered on 01/08/17 09:38; Admin Dose 5 MG; Start 01/07/17 at 09:00 Gabapentin (Neurontin) 300 mg TID PO Last administered on 01/08/17 09:38; Admin Dose 300 MG; Start 01/06/17 at 15:00 Metoprolol Tartrate (Lopressor) 25 mg BID PO Last administered on 01/08/17 09: 39; Admin Dose 25 MG; Start 01/06/17 at 21:00 Ondansetron HCl (Zofran Inj) 4 mg Q6H PRN IV NAUSEA AND/OR VOMITING; Start at 14:30 Acetaminophen (Tylenol Tab) 650 mg Q6H PRN PO PAIN LEVEL 1-3 OR FEVER Last administered on 01/07/17 09:27; Admin Dose 650 MG; Start 01/06/17 at 14:30 Famotidine (Pepcid) 20 mg Q12 PO Last administered on 01/08/17 09:38; Admin Dose 20 MG; Start 01/06/17 at 21:00 Enoxaparin Sodium (Lovenox) 40 mg DAILY SC Last administered on 01/08/17 09:41 ; Admin Dose 40 MG; Start 01/07/17 at 09:00 Diagnostic Test (Pha) (Accu-Chek) 1 ea 02 XX ; Start 01/07/17 at 02:00 Miscellaneous Information 1 ea NOTE XX ; Start 01/06/17 at 15:00 Glucose (Glutose) 15 gm Q15M PRN PO DECREASED GLUCOSE; Start 01/06/17 at 15:00 Glucose (Glutose) 22.5 gm Q15M PRN PO DECREASED GLUCOSE; Start 01/06/17 at 15: 00 Dextrose (D50w Syringe) 25 ml Q15M PRN IV DECREASED GLUCOSE; Start 01/06/17 at 15:00 Dextrose (D50w Syringe) 50 ml Q15M PRN IV DECREASED GLUCOSE; Start 01/06/17 at 15:00 Glucagon (Glucagen) 1 mg Q15M PRN IM DECREASED GLUCOSE; Start 01/06/17 at 15:00 Glucose (Glutose) 15 gm Q15M PRN BUCCAL DECREASED GLUCOSE; Start 01/06/17 at 15 :00 Fluticasone Propionate (Flonase 0.05% Nasal) 1 spray BID NASAL Last administered on 01/08/17 09:38; Admin Dose 1 SPRAY; Start 01/06/17 at 21:00 Loratadine (Claritin) 10 mg DAILY PO Last administered on 01/08/17 09:38; Admin Dose 10 MG; Start 01/07/17 at 09:00 Pantoprazole Sodium (Protonix) 20 mg BID@06,18 PO Last administered on 08:07; Admin Dose 20 MG; Start 01/06/17 at 18:00 Carbamazepine (Tegretol) 100 mg BID PO ; Start 01/08/17 at 11:00 Assessment/Plan Chief Complaint/Hosp Course 61 yo female with history of DM, sciatica, trigeminal neuralgia with prior surgical intervention worsening of sx. No history of patient being on tegretol. MRI Brain w contrast to eval planned for outpatient may start Tegretol 100 mg BID once narcotics d/c to avoid interactions , family advised to ensure patient is not taking any narcotics needs outpatient follow up with PCP upon d/c to ensure no electrolyte issues after on Tegretol as well as neurology follow up to titrate up medication may follow up with Dr. Guillen Problems: SENAIT MORELOS MD Jan 08, 2017 11:58
--- NOTE | 2017-01-08 16:12 | DS ---
Date/Time of Note Date/Time of Note DATE: 01/08/17 TIME: 16:12 Discharge Summary Admission/Discharge Info Admit Date/Time Jan 06, 2017 at 12:58 Discharge Date/Time Jan 08, 2017 at 13:35 Hx of Present Illness 61 yo F with PMH DM and HTN presents to the ED with multiple complaints. Patient states for the past 3 days she has been experiencing moderate right sided chest pain, intermittent in nature, squeezing/pressure like, nonradiating. She has associated nausea without vomiting and shortness of breath. She also is complaining of left sided jaw pain and has history of trigeminal neuralgia which she was operated on in 2010. She states the pain resolved after the surgery but over the last 40 days has returned, electrical in nature and preventing her from eating and opening her mouth. Patient does follow with an outside Neurologist who has tried her on Gabapentin, Diclofenac, and Tramadol with no relief. She also admits to RUQ pain with eating that is associated with nausea and diarrhea. Admits to headache, facial pressure, dizziness but denies any fevers, chills, palpitations, urinary issues. Hospital Course 61 yo F with PMH DM and HTN presents to the ED with multiple complaints. Patient states for the past 3 days she has been experiencing moderate right sided chest pain, intermittent in nature, squeezing/pressure like, nonradiating. She has associated nausea without vomiting and shortness of breath. She also is complaining of left sided jaw pain and has history of trigeminal neuralgia which she was operated on in 2010. Patient was admitted into the medicine service and over the course of the day, patient's atypical chest pain has resolved. Patient was evaluated by cardiology which stated she can follow-up as an outpatient as patient's symptoms have resolved and troponins were negative. Patient also complained of left cheek pain which has been chronic and worsening for the past 5 months patient has a history of trigeminal neuralgia, and has an outpatient neurologist and has tried multiple medications. Patient was seen by neurology which recommended Tegretol as patient has not tried this medication. It was also recommended patient follow- up as soon as possible with her outpatient primary care provider to evaluate electrolyte levels from Tegretol use as well as following up with her current neurologist in order to monitor her trigeminal neuralgia. It was also recommended that she get an MRI in the outpatient setting. All opiates were discontinued before Tegretol as they may have a reaction and it was explicitly explained to the patient and the patient's family that she should not be on opiates and to follow-up with her primary care provider as soon as possible. Discharge diagnosis Chest pain, resolved, atypical Left cheek pain, stable Diabetes Trigeminal neuralgia Sciatica Right upper quadrant pain, resolved Home Meds Active Scripts Carbamazepine* (Carbamazepine*) 100 Mg Tab.chew, 100 MG PO BID for 30 Days, #60 TAB.CHEW 2 Refills Prov:JOSE DIAL 01/08/17 Reported Medications Donepezil* (Aricept*) 5 Mg Tablet, 5 MG PO DAILY, TAB 01/06/17 Metformin* (Glucophage*) 1,000 Mg Tablet, 1000 MG PO BID, #60 TAB 07/31/16 Metoprolol Tartrate* (Lopressor*) 25 Mg Tablet, 25 MG PO BID, #60 TAB 09/29/15 Omeprazole* (Omeprazole*) 20 Mg Capsule.dr, 20 MG PO BID 07/02/13 Aspirin (Adult Aspirin) 81 Mg Tab.chew, 81 MG PO DAILY, 0 Refills 07/09/10 Discontinued Reported Medications Gabapentin* (Gabapentin*) 300 Mg Capsule, 300 MG PO TID 07/02/13 Discontinued Scripts Tramadol Hcl* (Ultram*) 50 Mg Tablet, 50 MG PO Q6H Y for PAIN, #20 TAB Prov:PARMINDRE GOODMAN MD 12/28/16 Metronidazole* (Flagyl*) 500 Mg Tablet, 500 MG PO TID for 10 Days, TAB Prov:GARRISON MEI DO 07/31/16 Ciprofloxacin Hcl* (Ciprofloxacin Hcl*) 500 Mg Tablet, 500 MG PO BID for 10 Days , TAB Prov:GARRISON MEI DO 07/31/16 Diphenoxylate HCl/Atropine (Lomotil 2.5-0.025 mg Tablet) 1 Each Tablet, 1 TAB PO QID Y for DIARRHEA, #10 TAB Prov:GARRISON MEI DO 07/31/16 Ondansetron (Ondansetron Odt) 4 Mg Tab.rapdis, 4 MG PO Q6H Y for NAUSEA AND/OR VOMITING, #10 TAB Prov:GARRISON MEI DO 07/31/16 Follow-up Plan 1. Follow up with your primary care provider and your neurologist for MRI of head for neuralgia 2. Stop neurontin and tramadol 3. Do not mix new medication with pain medication (tylenol ok is small doses) 4. Start new medication carbamazepine 100mg twice a day for cheek pain 5. If chest pain continues, return to the ED 6. Follow up with your primary care provider for cardiac stress test for resolved chest pain 7. Continue other medication, except neurontin and tramadol until you see your primary care provider and neurologist. Primary Care Provider Not On Staff Doctor Time spent on discharge: > 30 minutes Pending Labs Laboratory Tests Test 01/07/17 17:19 01/07/17 21:01 01/08/17 07:15 01/08/17 08:31 Bedside Glucose 101mg/dL (70-220) 125mg/dL (70-220) 125mg/dL (70-220) White Blood Count 7.510^3/ul (4.8-10.8) Red Blood Count 4.7510^6/ul (4.20-5.40) Hemoglobin 13.4g/dl (12.0-16.0) Hematocrit 42.4% (37.0-47.0) Mean Corpuscular Volume 89.3fl (82.0-101.0) Mean Corpuscular Hemoglobin 28.2pg (29.0-33.0) Mean Corpuscular Hemoglobin Concent 31.6g/dl (32.0-37.0) Red Cell Distribution Width 13.2% (11.5-14.5) Platelet Count 05788^3/UL (140-415) Mean Platelet Volume 10.4fl (7.4-10.4) Neutrophils % 57.4% (39.0-77.0) Lymphocytes % 29.2% (15.0-51.0) Monocytes % 9.1% (0.0-11.0) Eosinophils % 3.1% (0.0-7.0) Basophils % 0.8% (0.0-2.0) Nucleated Red Blood Cells % 0.0/100WBC (0.0-0.0) Neutrophils # 4.310^3/ul (1.6-7.5) Lymphocytes # 2.210^3/ul (0.8-2.9) Monocytes # 0.710^3/ul (0.3-0.9) Eosinophils # 0.210^3/ul (0.0-0.5) Basophils # 0.110^3/ul (0.0-0.1) Nucleated Red Blood Cells # 0.010^3/ul (0.0-0.0) Sodium Level 142mmol/L (135-144) Potassium Level 4.1mmol/L (3.5-5.1) Chloride Level 105mmol/L (97-110) Carbon Dioxide Level 30mmol/L (21-31) Anion Gap 11 (8-16) Blood Urea Nitrogen 18mg/dl (7-20) Creatinine 0.64mg/dl (0.44-1.00) Glucose Level 116mg/dl (70-220) Calcium Level 9.1mg/dl (8.4-10.2) Phosphorus Level 4.5mg/dl (2.5-4.9) Magnesium Level 2.0mg/dl (1.7-2.5) Test 01/08/17 12:19 Bedside Glucose 145mg/dL (70-220) JOSE DIAL Jan 08, 2017 16:12
--- NOTE | 2017-01-09 14:04 | RADRPT ---
Vent Rate: 61 bpm RR Interval: 0 msec DC Interval: 238 msec QRS Duration: 86 msec QT Interval: 468 msec QTC Interval: 471 msec P-R-T [place]: 43 - 3 - 48 degrees Sinus rhythm with 1st degree AV block Otherwise normal ECG Electronically Signed By: Andi Lindsay [id number]
== END 2017-01-08 13:35 | disposition home or self-care (01) ==
LOC: E/R 10:46 → MS4 12:58
PROVIDERS: ADMIT Internal Medicine; ATTEND Internal Medicine
DX: R07.9 Chest pain, unspecified (principal); I10 Essential (primary) hypertension; E11.9 Type 2 diabetes mellitus without complications; M47.816 Spondylosis without myelopathy or radiculopathy, lumbar region; G50.0 Trigeminal neuralgia; R51 Headache; E78.5 Hyperlipidemia, unspecified; R10.11 Right upper quadrant pain; Z79.84 Long term (current) use of oral hypoglycemic drugs; Z79.82 Long term (current) use of aspirin
CPT/HCPCS: 36415; 71010; 76705; 80048; 80061; 80076; 82550; 82553; 82962; 83036; 83690; 83735; 84100; 84443; 84484; 85025; 90686; 93005; 93306; 96372; 96374; 97162; 97166; 99285; G0008; G0378; J1650; J1815; J2270

== ENCOUNTER 2017-07-14 22:53 | Observation (INO) | END 2017-07-17 18:34 | disposition home or self-care (01) ==

== ENCOUNTER 2017-09-28 20:23 | Emergency (ER) | END 2017-09-29 01:31 | disposition home or self-care (01) ==

== ENCOUNTER 2018-06-19 07:39 | Emergency (ER) | payer MEDICARE, BC ==
[~2018-06-19] VITALS: Ht 167.6 cm; Wt 82.7 kg
[~2018-06-19 07:39] MED LIST changes: +CARB100T2 PO; -CIPR500T4 PO; -DIPH1TAB PO; +DONE5TAB53 PO; -GABA300C16 PO; +LEVO500T48 PO; +MAG355OR14 PO; -METR500T PO; +NAPR-985 PO; -ONDA4TAB14 PO; -TRAM-40 PO
[2018-06-19 07:52] VITALS: Ht 167.6 cm; Wt 82.7 kg
--- NOTE | 2018-06-19 08:39 | ERD ---
ER Documentation Chief Complaint Chief Complaint Complains of chest pain and SOB with left side pain since yesterday HPI 62-year-old woman complains of sharp fingertip sized chest pain lasting for a few seconds since last night. She also complains of muscular pain to the left posterior shoulder and neck. She denies fevers or chills, no cough, no shortness of breath, no calf or leg swelling. Patient states she has had these symptoms before and they usually resolve spontaneously. ROS All systems reviewed and are negative except as per history of present illness. Medications Home Meds Active Scripts Naproxen* (Naprosyn*) 500 Mg Tablet, 500 MG PO BID PRN for PAIN AND/OR INFLAMMATION, #30 TAB Prov:JOSE MOORE MD 06/19/18 Reported Medications Sitagliptin* (Januvia*) 100 Mg Tablet, 100 MG PO DAILY, #30 TAB 06/19/18 Cephalexin* (Cephalexin*) 500 Mg Capsule, 500 MG PO BID, #28 CAP 06/19/18 Ranitidine Hcl* (Ranitidine Hcl*) 150 Mg Tablet, 150 MG PO Q12, #60 TAB 06/19/18 Pravastatin Sodium* (Pravastatin Sodium*) 20 Mg Tablet, 20 MG PO HS, TAB 06/19/18 Lisinopril* (Lisinopril*) 10 Mg Tablet, 10 MG PO DAILY, #30 TAB 06/19/18 Metformin* (Glucophage*) 1,000 Mg Tablet, 1000 MG PO BID, #60 TAB 07/31/16 Metoprolol Tartrate* (Lopressor*) 25 Mg Tablet, 25 MG PO BID, #60 TAB 09/29/15 Aspirin (Adult Aspirin) 81 Mg Tab.chew, 81 MG PO DAILY, 0 Refills 07/09/10 Discontinued Reported Medications Donepezil* (Aricept*) 5 Mg Tablet, 5 MG PO DAILY, TAB 01/06/17 Omeprazole* (Omeprazole*) 20 Mg Capsule.dr, 20 MG PO BID 07/02/13 Discontinued Scripts Naproxen* (Naprosyn*) 500 Mg Tablet, 500 MG PO BID PRN for PAIN AND/OR INFLAMMATION, #30 TAB Prov:JOSE MOORE MD 09/28/17 Mag Hydrox/Al Hydrox/Simeth (Maalox Advanced Suspension) 355 Ml Oral.susp, 2 TSP PO TID PRN for PAIN, #24 OZ Prov:JOSE MOORE MD 09/28/17 Levofloxacin* (Levaquin*) 500 Mg Tablet, 500 MG PO DAILY for 7 Days, TAB Prov:JOSE MOORE MD 09/28/17 Carbamazepine* (Carbamazepine*) 100 Mg Tab.chew, 100 MG PO BID for 30 Days, #60 TAB.CHEW 2 Refills Prov:JOSE DIAL 01/08/17 Allergies Allergies: Coded Allergies: Penicillins (Verified Allergy, Mild, 06/19/18) PMhx/Soc hypertension, diabetes mellitus, trigeminal neuralgia, sciatica, gastritis History of Surgery: Yes (Dimas Knee sx, brain clot removal, hysterectomy, 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 ) Anesthesia Reaction: No Hx Neurological Disorder: Yes (2 strokes, trigeminal neuralgia) Hx Respiratory Disorders: No Hx Cardiac Disorders: Yes (HTN ) Hx Psychiatric Problems: No Hx Miscellaneous Medical Probl: Yes (pls see EMR) Hx Alcohol Use: No Hx Substance Use: No Hx Tobacco Use: No FmHx Family History: No diabetes Physical Exam Vitals Vital Signs Date Temp Pulse Resp B/P (MAP) Pulse Ox O2 O2 Flow FiO2 Time Delivery Rate 06/19/18 97.8 60 14 134/78 99 Room Air 10:20 (96) 06/19/18 97.2 77 20 165/78 99 07:52 (107) Physical Exam GENERAL: Well-developed, well-nourished, well-hydrated, in no apparent distress, looks nontoxic in appearance HEENT: Moist mucous membranes, pink conjunctiva, no cervical spine tenderness or step-off deformities, no goiter, no jaundice or icterus, extraocular movements intact without pain. No submandibular induration, and no pharyngeal erythema NEURO: Alert and oriented 3, cranial nerves II through XII intact bilaterally, pupils equal round reactive to light, no focal deficits or facial asymmetry, sensation intact distally Strength 5/5 in upper and lower extremities bilaterally CARDIAC: Regular rate and rhythm, no murmurs rubs or gallops LUNGS: Clear bilaterally no wheezing crackles or stridor ABDOMEN: Soft nontender, no guarding, no rigidity, no rebound, no psoas sign no obturator sign. Normoactive bowel sounds SKIN: Warm and dry to touch, no abrasions, contusions, or hematomas, no lacerations, no ecchymosis, no target lesions, and without ulcers EXTREMITIES: No clubbing cyanosis or edema, calves are bilaterally symmetrical, no Homans sign, no popliteal cord sign. Distal pulses equal and bilateral PSYCH: Normal affect without agitation or irritability Result Diagram: 06/19/18 0845 06/19/18 0845 Results 24 hrs Laboratory Tests Test 06/19/18 08:45 06/19/18 09:16 White Blood Count 6.6 10^3/ul Red Blood Count 4.45 10^6/ul Hemoglobin 13.0 g/dl Hematocrit 39.1 % Mean Corpuscular Volume 87.9 fl Mean Corpuscular Hemoglobin 29.2 pg Mean Corpuscular Hemoglobin Concent 33.2 g/dl Red Cell Distribution Width 12.8 % Platelet Count 297 10^3/UL Mean Platelet Volume 10.3 fl Immature Granulocytes % 0.600 % Neutrophils % 60.8 % Lymphocytes % 27.1 % Monocytes % 7.0 % Eosinophils % 3.9 % Basophils % 0.6 % Nucleated Red Blood Cells % 0.0 /100WBC Immature Granulocytes # 0.040 10^3/ul Neutrophils # 4.0 10^3/ul Lymphocytes # 1.8 10^3/ul Monocytes # 0.5 10^3/ul Eosinophils # 0.3 10^3/ul Basophils # 0.0 10^3/ul Nucleated Red Blood Cells # 0.0 10^3/ul Sodium Level 141 mmol/L Potassium Level 4.1 mmol/L Chloride Level 106 mmol/L Carbon Dioxide Level 25 mmol/L Anion Gap 10 Blood Urea Nitrogen 11 mg/dl Creatinine 0.45 mg/dl Est Glomerular Filtrat Rate mL/min > 60 mL/min Glucose Level 156 mg/dl Calcium Level 9.0 mg/dl Total Bilirubin 0.3 mg/dl Direct Bilirubin 0.00 mg/dl Indirect Bilirubin 0.3 mg/dl Aspartate Amino Transf (AST/SGOT) 39 IU/L Alanine Aminotransferase (ALT/SGPT) 41 IU/L Alkaline Phosphatase 169 IU/L Troponin I < 0.012 ng/ml Total Protein 7.6 g/dl Albumin 4.1 g/dl Globulin 3.50 g/dl Albumin/Globulin Ratio 1.17 Lipase 522 U/L Urine Color STRAW Urine Clarity CLEAR Urine pH 6.0 Urine Specific [place] 1.004 Urine Ketones NEGATIVE mg/dL Urine Nitrite NEGATIVE mg/dL Urine Bilirubin NEGATIVE mg/dL Urine Urobilinogen NEGATIVE mg/dL Urine Leukocyte Esterase TRACE Agustín/ul Urine Microscopic RBC 2 /HPF Urine Microscopic WBC 2 /HPF Urine Squamous Epithelial Cells FEW /HPF Urine Hemoglobin 1+ mg/dL Urine Glucose NEGATIVE mg/dL Urine Total Protein NEGATIVE mg/dl Current Medications Medications Dose Sig/Ko Start Time Status Last (Trade) Ordered Route PRN Stop Time Admin Dose Reason Admin Sodium 500 ml @ Q1H STAT 06/19/18 DC 06/19/18 Chloride 500 mls/hr IV 09:06/19/18 09: 10:00 Ketorolac 15 mg ONCE STAT 06/19/18 DC 06/19/18 Tromethamine IV :06/19/18 09: (Toradol) 09:02 [facility] IV line was established patient was placed on secured entrance monitor rhythm strip revealed a sinus rhythm at about 70 bpm with upright P and T waves. Patient was afebrile EKG performed, read by me: 67 bpm, normal sinus rhythm, normal axis, no acute ST segment changes, narrow QRS complex, with good R-wave progression in precordial leads. I administered 1 L normal saline IV, Toradol 15 mg IV CBC and electrolytes were normal, liver function tests normal, troponin negative, urinalysis was negative. Vital signs are normal at this time and her pain has completely resolved, she has no concerning points on history and physical and she can follow-up with PMD for continued outpatient management. Differential diagnoses considered, included but not limited to acute coronary syndrome, pulmonary embolism, aortic dissection, abdominal aortic aneurysm, seps is, stroke, meningitis, encephalitis, pneumonia, appendicitis, cholecystitis, bowel obstruction, pyelonephritis, nephrolithiasis, cystitis, as well as metabolic, hematologic, and electrolyte abnormalities. As well as abscess, cellulitis, fractures, and dislocations. Patient feels much better at this time, and vital signs are normal, symptoms have improved. I did give strict instructions to return to the ED if symptoms continue or worsen, patient will otherwise follow-up with primary care physic darin. Patient understood instructions and agreed to plan. Disclaimer: Inadvertent spelling and grammatical errors are likely due to EHR/dictation software use and do not reflect on the overall quality of patient care. Also, please note that the electronic time recorded on this note does not necessarily reflect the actual time of the patient encounter. Departure Diagnosis: Primary Impression: Chest pain Chest pain type: unspecified Qualified Codes: R07.9 - Chest pain, unspecified Additional Impression: Muscle spasm Condition: JOSE Gooden MD Jun 19, 2018 08:39
[2018-06-19] MEDS ORDERED: CEPH500C PO (08:55)
[2018-06-19] MEDS ORDERED: SITA100T11 PO (08:55)
[2018-06-19] MEDS ORDERED: RANI150T5 PO (08:55)
[2018-06-19] MEDS ORDERED: LISI10TA2 PO (08:55)
[2018-06-19] MEDS ORDERED: PRAV20TA63 PO (08:55)
[2018-06-19] MEDS ORDERED: SOD CHLORIDE 0.9% 500 ML IV STA (09:01)
[2018-06-19] MEDS ORDERED: KETOROLAC 15 MG INJ IV STA (09:01)
[2018-06-19] MEDS ORDERED: NAPR-985 PO (10:02)
[2018-06-19 10:20] VITALS: BP 134/78; PULSE 60; RESP 14
== END 2018-06-19 10:22 | disposition home or self-care (01) ==
LOC: E/R 07:39
DX: R07.9 Chest pain, unspecified (principal); M62.838 Other muscle spasm; E11.9 Type 2 diabetes mellitus without complications; I10 Essential (primary) hypertension; Z79.82 Long term (current) use of aspirin; Z79.84 Long term (current) use of oral hypoglycemic drugs
CPT/HCPCS: 36415; 71045; 80053; 81001; 83690; 84484; 85025; 93005; 96374; 99285; J1885; J7040